=== PATIENT | male | born 1960 | race Caucasian/White ===

== ENCOUNTER 2017-12-11 10:57 | Inpatient (IN) | payer OTHER, MEDICAID ==
[~2017-12-11] VITALS: Ht 170.2 cm; Wt 84.4 kg
[~2017-12-11 10:57] MED LIST: BUDE10.23 IH; HYDR-3965 PO; MULT1CAP34 PO; OMEP-84 PO; PRED10TA PO; ZES10T PO
[2017-12-11] MEDS ORDERED: ondansetron/PF 4mg/2ml inj IV ONE (11:10)
[2017-12-11 11:28] LABS: BASOPHILS % (AUTO) 0.1 % (0-1); EOSINOPHILS # (AUTO) 0.2 X10'3 (0-0.9); HEMATOCRIT 41.9 % (42.0-52.0); HEMOGLOBIN 14.1 g/dl (14.0-17.9); LYMPHOCYTES # (AUTO) 1.3 X10'3 (1.1-4.8); LYMPHOCYTES % (AUTO) 8.2 % (21-51); MEAN CORPUSCULAR HEMOGLOBIN 30.7 PG (27.0-31.0); MEAN CORPUSCULAR HGB CONC 33.7 % (33.0-36.5); MEAN CORPUSCULAR VOLUME 91.2 FL (78-98); MONOCYTES # (AUTO) 1.4 X10'3 (0-0.9); NEUTROPHILS # (AUTO) 12.9 X10'3 (1.8-7.7); NEUTROPHILS % (AUTO) 81.7 % (42-75); PLATELET COUNT 308 X10'3 (140-440); RED BLOOD COUNT 4.59 X10'6 (4.70-6.10); RED CELL DISTRIBUTION WIDTH 14.5 % (11.5-14.5); WHITE BLOOD COUNT 15.8 X10'3 (4.5-11.0)
[2017-12-11 11:35] LABS: CLARITY,URINE CLEAR (Clear); COLOR,URINE YELLOW (Yellow); GLUCOSE, URINE NEGATIVE (Neg); KETONES,URINE NEGATIVE (Neg); LEUKOCYTE ESTERASE ,URINE LARGE (Neg); NITRITES, URINE NEGATIVE (Neg); OCCULT BLOOD,URINE TRACE-INTACT (Neg); PROTEIN,URINE NEGATIVE (Neg); UROBILINOGEN,URINE 0.2 E.U/dL (0.2-1.0)
[2017-12-11 11:41] LABS: UA COLLECTION TYPE CLN CATCH MIDSTREAM
[2017-12-11 11:41] LABS: ALANINE AMINOTRANSFERASE 25 U/L (12-78); ALBUMIN 3.3 G/DL (3.4-5.0); ALBUMIN/GLOBULIN RATIO 0.7 (1.1-1.5); ALKALINE PHOSPHATASE 83 IU/L (46-116); ANION GAP 7 (8-16); ASPARTATE AMINO TRANSFERASE 18 U/L (10-37); BILIRUBIN,TOTAL 0.6 MG/DL (0.1-1.0); BLOOD UREA NITROGEN 12 MG/DL (7-18); BUN/CREATININE RATIO 9.8 (5.4-32.0); CALCIUM 9.1 MG/DL (8.5-10.1); CHLORIDE 100 MMOL/L (99-107); CREATININE 1.22 MG/DL (0.60-1.10); GLUCOSE 103 MG/DL (70-104); POTASSIUM 4.4 MMOL/L (3.5-5.1); SODIUM 135 MMOL/L (135-145); TOTAL CARBON DIOXIDE 28.2 MMOL/L (24-32); TOTAL PROTEIN 8.1 G/DL (6.4-8.2); eGFR 61 ML/MIN
[2017-12-11 11:42] LABS: BACTERIA,URINE NONE SEEN /HPF (Neg); MUCUS STRANDS NONE SEEN /LPF (Neg); RBC,URINE 0-2 /HPF (0-2); SQUAMOUS EPITHELIAL CELL,UR FEW /LPF (FEW); WBC,URINE 20-30 /HPF (0-4)
[2017-12-11] MEDS ORDERED: CefTRIAXone 2gm/D5W 50ml 50 ML IV ONE (11:50)
[2017-12-11] MEDS: morphine 4 MG/ML inj SYRINge IV PRN ×2 (12:32→13:42)
[2017-12-11] MEDS ORDERED: magnesium 1gm/100ml D5W IVPB 50 ML IV PRN (12:50)
[2017-12-11] MEDS ORDERED: mag hydrox/Alum hydrox/simeth 30ml oral suspension PO PRN (12:50)
[2017-12-11] MEDS ORDERED: potassium Cl 20 mEq SR tablet PO PRN ×2 (12:50)
[2017-12-11] MEDS ORDERED: ondansetron/PF 4mg/2ml inj IV PRN (12:50)
[2017-12-11] MEDS ORDERED: potassium Cl 40MEQ/NS 500ml 500 ML IV PRN ×2 (12:50)
[2017-12-11] MEDS ORDERED: magnesium 4gm in 100ml NS 100 ML IV PRN (12:50)
[2017-12-11] MEDS ORDERED: HYDROmorphone inj. 0.5 MG/0.5 ML DISP.SYRIN IV PRN (12:50)
[2017-12-11] MEDS ORDERED: magnesium Cl slow-release 64mg tablet PO PRN (12:50)
[2017-12-11] MEDS: normal saline 1000ml 1,000 ML IV SCH (15:59)
[2017-12-11 16:30] VITALS: BP 158/88
[2017-12-11 18:00] VITALS: BP 163/103
[2017-12-11] MEDS: heparin, porcine 5000 units/ml vial SQ SCH (19:20)
[2017-12-11] MEDS: CefTRIAXone/D5W-Rocephin 1gm 50 ML IV SCH (19:20)
[2017-12-11] MEDS ORDERED: HYDROmorphone 1 mg/ml syringe ONE (21:32)
[2017-12-11] MEDS: magnesium hydroxide 30ml (MOM) UD suspension PO PRN (21:37)
[2017-12-12] VITALS: BP 140/93
[2017-12-12] MEDS: normal saline 1000ml 1,000 ML IV SCH ×3 (03:29→15:03)
[2017-12-12 05:33] LABS: BASOPHILS # (AUTO) 0.1 X10'3 (0-0.2); BASOPHILS % (AUTO) 1.1 % (0-1); EOSINOPHILS # (AUTO) 0.3 X10'3 (0-0.9); EOSINOPHILS % (AUTO) 2.2 % (0-6); HEMATOCRIT 38.9 % (42.0-52.0); HEMOGLOBIN 13.1 g/dl (14.0-17.9); LYMPHOCYTES # (AUTO) 1.4 X10'3 (1.1-4.8); LYMPHOCYTES % (AUTO) 11.4 % (21-51); MEAN CORPUSCULAR HEMOGLOBIN 30.9 PG (27.0-31.0); MEAN CORPUSCULAR HGB CONC 33.7 % (33.0-36.5); MEAN CORPUSCULAR VOLUME 91.6 FL (78-98); MEAN PLATELET VOLUME 8.3 FL (7.4-10.4); MONOCYTES # (AUTO) 1.4 X10'3 (0-0.9); MONOCYTES % (AUTO) 11.4 % (2-12); NEUTROPHILS # (AUTO) 9.1 X10'3 (1.8-7.7); NEUTROPHILS % (AUTO) 73.9 % (42-75); PLATELET COUNT 269 X10'3 (140-440); RED BLOOD COUNT 4.25 X10'6 (4.70-6.10); RED CELL DISTRIBUTION WIDTH 14.6 % (11.5-14.5); WHITE BLOOD COUNT 12.3 X10'3 (4.5-11.0)
[2017-12-12 06:03] LABS: ALANINE AMINOTRANSFERASE 56 U/L (12-78); ALBUMIN 2.8 G/DL (3.4-5.0); ALBUMIN/GLOBULIN RATIO 0.7 (1.1-1.5); ALKALINE PHOSPHATASE 114 IU/L (46-116); ANION GAP 5 (8-16); ASPARTATE AMINO TRANSFERASE 37 U/L (10-37); BILIRUBIN,TOTAL 0.4 MG/DL (0.1-1.0); BLOOD UREA NITROGEN 10 MG/DL (7-18); BUN/CREATININE RATIO 7.8 (5.4-32.0); CALCIUM 8.8 MG/DL (8.5-10.1); CHLORIDE 105 MMOL/L (99-107); CREATININE 1.28 MG/DL (0.60-1.10); GLUCOSE 98 MG/DL (70-104); MAGNESIUM 2.1 MG/DL (1.5-2.4); POTASSIUM 4.3 MMOL/L (3.5-5.1); SODIUM 139 MMOL/L (135-145); TOTAL CARBON DIOXIDE 28.9 MMOL/L (24-32); eGFR 58 ML/MIN
[2017-12-12 06:57] VITALS: BP 139/98
[2017-12-12] MEDS: heparin, porcine 5000 units/ml vial SQ SCH ×2 (07:34→19:48)
[2017-12-12] MEDS: vancomycin/NS 1 GM ADD-VANTAGE 250 ML IV SCH ×2 (07:34→19:47)
[2017-12-12] MEDS ORDERED: LOSA50TA3 PO (07:53)
[2017-12-12] MEDS: K and/or MAG REPLACEMENT MC SCH (08:00)
[2017-12-12] MEDS ORDERED: pneumococcal 23-VAL P-sac vacc 25 mcg/0.5ml vial IMVAC ONE (10:00)
[2017-12-12] MEDS: lactobacillus rhamnosus 10,000 MMU CELLS/CAPSULE PO SCH ×2 (10:14→19:48)
[2017-12-12 11:27] VITALS: BP 170/98
[2017-12-12] MEDS: losartan 50mg tablet PO SCH (11:49)
[2017-12-12] MEDS: HYDROcodone/acetaminophen 5mg/325mg tablet PO PRN (11:50)
[2017-12-12] MEDS: albuterol 2.5 MG/3 ML nebule NEB SCH ×2 (15:00→18:55)
[2017-12-12] MEDS: HYDROmorphone 1 mg/ml syringe IV PRN (16:23)
[2017-12-12] MEDS: CefTRIAXone/D5W-Rocephin 1gm 50 ML IV SCH (17:53)
[2017-12-12 18:00] VITALS: BP 172/97
[2017-12-12] MEDS ORDERED: amLODIPine 2.5mg tablet PO ONE (19:40)
[2017-12-12] MEDS ORDERED: FORMOTEROL FUMARATE IH SCH (20:00)
[2017-12-12] MEDS ORDERED: [UNRECOGNIZED DRUG - OTHER] IH SCH (20:00)
[2017-12-12] MEDS ORDERED: BUDESONIDE IH SCH (20:00)
[2017-12-12] MEDS: budesonide 0.5mg/2ml UD nebule IH SCH (21:00)
[2017-12-13 00:11] VITALS: BP 163/104
[2017-12-13] MEDS: normal saline 1000ml 1,000 ML IV SCH (02:40)
[2017-12-13 05:11] LABS: BASOPHILS % (AUTO) 0.3 % (0-1); EOSINOPHILS # (AUTO) 0.3 X10'3 (0-0.9); EOSINOPHILS % (AUTO) 2.4 % (0-6); HEMATOCRIT 36.9 % (42.0-52.0); HEMOGLOBIN 12.4 g/dl (14.0-17.9); LYMPHOCYTES # (AUTO) 1.3 X10'3 (1.1-4.8); LYMPHOCYTES % (AUTO) 9.7 % (21-51); MEAN CORPUSCULAR HEMOGLOBIN 30.9 PG (27.0-31.0); MEAN CORPUSCULAR HGB CONC 33.5 % (33.0-36.5); MEAN CORPUSCULAR VOLUME 92.2 FL (78-98); MEAN PLATELET VOLUME 8.1 FL (7.4-10.4); MONOCYTES # (AUTO) 1.4 X10'3 (0-0.9); MONOCYTES % (AUTO) 10.1 % (2-12); NEUTROPHILS # (AUTO) 10.5 X10'3 (1.8-7.7); NEUTROPHILS % (AUTO) 77.5 % (42-75); PLATELET COUNT 276 X10'3 (140-440); RED CELL DISTRIBUTION WIDTH 14.6 % (11.5-14.5); WHITE BLOOD COUNT 13.6 X10'3 (4.5-11.0)
[2017-12-13 05:25] LABS: ALANINE AMINOTRANSFERASE 37 U/L (12-78); ALBUMIN 2.6 G/DL (3.4-5.0); ALBUMIN/GLOBULIN RATIO 0.6 (1.1-1.5); ALKALINE PHOSPHATASE 92 IU/L (46-116); ANION GAP 2 (8-16); ASPARTATE AMINO TRANSFERASE 18 U/L (10-37); BILIRUBIN,TOTAL 0.4 MG/DL (0.1-1.0); BLOOD UREA NITROGEN 10 MG/DL (7-18); BUN/CREATININE RATIO 7.8 (5.4-32.0); CALCIUM 8.4 MG/DL (8.5-10.1); CHLORIDE 103 MMOL/L (99-107); CREATININE 1.29 MG/DL (0.60-1.10); GLUCOSE 99 MG/DL (70-104); MAGNESIUM 1.8 MG/DL (1.5-2.4); POTASSIUM 4.2 MMOL/L (3.5-5.1); SODIUM 134 MMOL/L (135-145); TOTAL PROTEIN 6.7 G/DL (6.4-8.2); eGFR 57 ML/MIN
[2017-12-13] MEDS: albuterol 2.5 MG/3 ML nebule NEB SCH ×4 (07:00→19:00)
[2017-12-13 07:45] VITALS: BP 165/86
[2017-12-13] MEDS: K and/or MAG REPLACEMENT MC SCH (08:00)
[2017-12-13] MEDS: HYDROmorphone 1 mg/ml syringe IV PRN ×3 (08:00→19:42)
[2017-12-13] MEDS: vancomycin/NS 1 GM ADD-VANTAGE 250 ML IV SCH ×2 (08:01→19:29)
[2017-12-13] MEDS: losartan 50mg tablet PO SCH (08:01)
[2017-12-13] MEDS: acetaminophen 325mg tablet PO PRN (08:01)
[2017-12-13] MEDS: lactobacillus rhamnosus 10,000 MMU CELLS/CAPSULE PO SCH ×2 (08:01→19:29)
[2017-12-13] MEDS: heparin, porcine 5000 units/ml vial SQ SCH ×2 (08:01→19:29)
[2017-12-13] MEDS: pantoprazole 40mg Tablet.DR PO SCH (08:01)
[2017-12-13] MEDS: budesonide 0.5mg/2ml UD nebule IH SCH ×2 (08:54→19:25)
[2017-12-13] MEDS ORDERED: amLODIPine 5mg tablet PO ONE (11:40)
[2017-12-13 11:55] VITALS: BP 168/91
[2017-12-13] MEDS: magnesium hydroxide 30ml (MOM) UD suspension PO PRN (12:56)
[2017-12-13] MEDS ORDERED: bisacodyl 10mg suppository rectal RC STA (16:42)
[2017-12-13] MEDS ORDERED: bisacodyl 10mg suppository rectal RC PRN (16:45)
[2017-12-13] MEDS: CefTRIAXone/D5W-Rocephin 1gm 50 ML IV SCH (17:24)
[2017-12-13 19:00] VITALS: BP 150/81
[2017-12-13] MEDS ORDERED: VANCOMYCIN LEVEL IV ONE (19:30)
[2017-12-13] MEDS: docusate sod 250mg capsule PO SCH (20:52)
[2017-12-14] VITALS: BP 155/93
[2017-12-14 06:26] LABS: BASOPHILS % (AUTO) 0.2 % (0-1); EOSINOPHILS # (AUTO) 0.3 X10'3 (0-0.9); EOSINOPHILS % (AUTO) 2.7 % (0-6); HEMATOCRIT 39.9 % (42.0-52.0); HEMOGLOBIN 13.4 g/dl (14.0-17.9); LYMPHOCYTES # (AUTO) 1.1 X10'3 (1.1-4.8); LYMPHOCYTES % (AUTO) 8.7 % (21-51); MEAN CORPUSCULAR HEMOGLOBIN 30.5 PG (27.0-31.0); MEAN CORPUSCULAR HGB CONC 33.5 % (33.0-36.5); MEAN PLATELET VOLUME 7.7 FL (7.4-10.4); MONOCYTES # (AUTO) 1.3 X10'3 (0-0.9); MONOCYTES % (AUTO) 10.8 % (2-12); NEUTROPHILS # (AUTO) 9.5 X10'3 (1.8-7.7); NEUTROPHILS % (AUTO) 77.6 % (42-75); PLATELET COUNT 293 X10'3 (140-440); RED BLOOD COUNT 4.38 X10'6 (4.70-6.10); RED CELL DISTRIBUTION WIDTH 14.2 % (11.5-14.5); WHITE BLOOD COUNT 12.3 X10'3 (4.5-11.0)
[2017-12-14 07:00] LABS: ALANINE AMINOTRANSFERASE 31 U/L (12-78); ALBUMIN 2.8 G/DL (3.4-5.0); ALBUMIN/GLOBULIN RATIO 0.6 (1.1-1.5); ALKALINE PHOSPHATASE 83 IU/L (46-116); ANION GAP 6 (8-16); ASPARTATE AMINO TRANSFERASE 20 U/L (10-37); BILIRUBIN,TOTAL 0.4 MG/DL (0.1-1.0); BLOOD UREA NITROGEN 8 MG/DL (7-18); BUN/CREATININE RATIO 6.3 (5.4-32.0); CHLORIDE 103 MMOL/L (99-107); CREATININE 1.28 MG/DL (0.60-1.10); GLUCOSE 93 MG/DL (70-104); MAGNESIUM 2.2 MG/DL (1.5-2.4); POTASSIUM 4.6 MMOL/L (3.5-5.1); SODIUM 140 MMOL/L (135-145); TOTAL CARBON DIOXIDE 31.4 MMOL/L (24-32); TOTAL PROTEIN 7.3 G/DL (6.4-8.2); eGFR 58 ML/MIN
[2017-12-14] MEDS: albuterol 2.5 MG/3 ML nebule NEB SCH ×2 (07:00→11:00)
[2017-12-14] MEDS: budesonide 0.5mg/2ml UD nebule IH SCH (07:07)
[2017-12-14] MEDS: losartan 50mg tablet PO SCH (07:22)
[2017-12-14] MEDS: magnesium hydroxide 30ml (MOM) UD suspension PO PRN (07:22)
[2017-12-14] MEDS: heparin, porcine 5000 units/ml vial SQ SCH ×2 (07:23→19:11)
[2017-12-14] MEDS: lactobacillus rhamnosus 10,000 MMU CELLS/CAPSULE PO SCH ×2 (07:23→20:12)
[2017-12-14] MEDS: vancomycin/NS 1 GM ADD-VANTAGE 250 ML IV SCH ×2 (07:23→19:11)
[2017-12-14] MEDS: pantoprazole 40mg Tablet.DR PO SCH (07:23)
[2017-12-14] MEDS: amLODIPine 5mg tablet PO SCH (07:23)
[2017-12-14] MEDS ORDERED: amLODIPine 5mg tablet PO SCH (08:00)
[2017-12-14] MEDS: K and/or MAG REPLACEMENT MC SCH (08:00)
[2017-12-14 08:53] VITALS: BP 151/84
[2017-12-14 12:00] VITALS: BP 124/80
[2017-12-14] MEDS: HYDROmorphone 1 mg/ml syringe IV PRN ×2 (12:27→17:08)
[2017-12-14] MEDS ORDERED: ALBU8HFA PO (12:39)
[2017-12-14] MEDS: CefTRIAXone/D5W-Rocephin 1gm 50 ML IV SCH (17:04)
[2017-12-14 19:00] VITALS: BP 163/91
[2017-12-14] MEDS: docusate sod 250mg capsule PO SCH (20:12)
[2017-12-15] VITALS: BP 144/86
[2017-12-15 05:24] LABS: BASOPHILS # (AUTO) 0.1 X10'3 (0-0.2); BASOPHILS % (AUTO) 0.7 % (0-1); EOSINOPHILS # (AUTO) 0.4 X10'3 (0-0.9); EOSINOPHILS % (AUTO) 3.4 % (0-6); HEMATOCRIT 37.4 % (42.0-52.0); HEMOGLOBIN 12.4 g/dl (14.0-17.9); LYMPHOCYTES # (AUTO) 1.2 X10'3 (1.1-4.8); LYMPHOCYTES % (AUTO) 10.2 % (21-51); MEAN CORPUSCULAR HEMOGLOBIN 30.7 PG (27.0-31.0); MEAN CORPUSCULAR HGB CONC 33.3 % (33.0-36.5); MEAN CORPUSCULAR VOLUME 92.2 FL (78-98); MEAN PLATELET VOLUME 7.7 FL (7.4-10.4); MONOCYTES # (AUTO) 1.4 X10'3 (0-0.9); MONOCYTES % (AUTO) 12.4 % (2-12); NEUTROPHILS # (AUTO) 8.5 X10'3 (1.8-7.7); NEUTROPHILS % (AUTO) 73.3 % (42-75); PLATELET COUNT 265 X10'3 (140-440); RED BLOOD COUNT 4.05 X10'6 (4.70-6.10); RED CELL DISTRIBUTION WIDTH 14.6 % (11.5-14.5); WHITE BLOOD COUNT 11.7 X10'3 (4.5-11.0)
[2017-12-15 05:41] LABS: ALANINE AMINOTRANSFERASE 27 U/L (12-78); ALBUMIN 2.5 G/DL (3.4-5.0); ALBUMIN/GLOBULIN RATIO 0.6 (1.1-1.5); ALKALINE PHOSPHATASE 69 IU/L (46-116); ANION GAP 3 (8-16); ASPARTATE AMINO TRANSFERASE 14 U/L (10-37); BILIRUBIN,TOTAL 0.2 MG/DL (0.1-1.0); BLOOD UREA NITROGEN 8 MG/DL (7-18); BUN/CREATININE RATIO 6.1 (5.4-32.0); CALCIUM 9.3 MG/DL (8.5-10.1); CHLORIDE 104 MMOL/L (99-107); CREATININE 1.32 MG/DL (0.60-1.10); GLUCOSE 102 MG/DL (70-104); MAGNESIUM 2.2 MG/DL (1.5-2.4); POTASSIUM 4.6 MMOL/L (3.5-5.1); SODIUM 140 MMOL/L (135-145); TOTAL CARBON DIOXIDE 33.5 MMOL/L (24-32); TOTAL PROTEIN 6.6 G/DL (6.4-8.2); eGFR 56 ML/MIN
[2017-12-15 07:18] VITALS: BP 167/92
[2017-12-15] MEDS: amLODIPine 5mg tablet PO SCH (08:09)
[2017-12-15] MEDS: lactobacillus rhamnosus 10,000 MMU CELLS/CAPSULE PO SCH ×2 (08:09→19:02)
[2017-12-15] MEDS: losartan 50mg tablet PO SCH (08:09)
[2017-12-15] MEDS: heparin, porcine 5000 units/ml vial SQ SCH ×2 (08:10→19:03)
[2017-12-15] MEDS: vancomycin/NS 1 GM ADD-VANTAGE 250 ML IV SCH ×2 (08:10→19:02)
[2017-12-15] MEDS: pantoprazole 40mg Tablet.DR PO SCH (08:10)
[2017-12-15] MEDS: K and/or MAG REPLACEMENT MC SCH (08:12)
[2017-12-15] MEDS: HYDROcodone/acetaminophen 5mg/325mg tablet PO PRN (08:21)
[2017-12-15] MEDS: magnesium hydroxide 30ml (MOM) UD suspension PO PRN ×2 (08:21→16:13)
[2017-12-15] MEDS: HYDROmorphone 1 mg/ml syringe IV PRN ×3 (08:28→20:20)
[2017-12-15] MEDS ORDERED: amLODIPine 5mg tablet PO ONE (10:05)
[2017-12-15 10:46] VITALS: BP 162/82
[2017-12-15] MEDS: CefTRIAXone/D5W-Rocephin 1gm 50 ML IV SCH (17:29)
[2017-12-15 19:00] VITALS: BP 149/82
[2017-12-15] MEDS: docusate sod 250mg capsule PO SCH (20:20)
[2017-12-15 23:59] VITALS: BP 153/88
[2017-12-16] VITALS: BP 156/100
[2017-12-16 05:13] LABS: BASOPHILS % (AUTO) 0.3 % (0-1); EOSINOPHILS # (AUTO) 0.4 X10'3 (0-0.9); EOSINOPHILS % (AUTO) 3.1 % (0-6); HEMATOCRIT 36.2 % (42.0-52.0); HEMOGLOBIN 12.2 g/dl (14.0-17.9); LYMPHOCYTES # (AUTO) 1.1 X10'3 (1.1-4.8); MEAN CORPUSCULAR HEMOGLOBIN 30.7 PG (27.0-31.0); MEAN CORPUSCULAR HGB CONC 33.6 % (33.0-36.5); MEAN CORPUSCULAR VOLUME 91.4 FL (78-98); MONOCYTES # (AUTO) 1.2 X10'3 (0-0.9); MONOCYTES % (AUTO) 9.5 % (2-12); NEUTROPHILS # (AUTO) 9.8 X10'3 (1.8-7.7); NEUTROPHILS % (AUTO) 78.1 % (42-75); PLATELET COUNT 274 X10'3 (140-440); RED BLOOD COUNT 3.96 X10'6 (4.70-6.10); RED CELL DISTRIBUTION WIDTH 14.3 % (11.5-14.5); WHITE BLOOD COUNT 12.5 X10'3 (4.5-11.0)
[2017-12-16 05:36] LABS: ALANINE AMINOTRANSFERASE 28 U/L (12-78); ALBUMIN 2.6 G/DL (3.4-5.0); ALBUMIN/GLOBULIN RATIO 0.6 (1.1-1.5); ALKALINE PHOSPHATASE 71 IU/L (46-116); ANION GAP 4 (8-16); ASPARTATE AMINO TRANSFERASE 13 U/L (10-37); BILIRUBIN,TOTAL 0.2 MG/DL (0.1-1.0); BLOOD UREA NITROGEN 10 MG/DL (7-18); BUN/CREATININE RATIO 7.5 (5.4-32.0); CALCIUM 8.8 MG/DL (8.5-10.1); CHLORIDE 102 MMOL/L (99-107); CREATININE 1.33 MG/DL (0.60-1.10); GLUCOSE 102 MG/DL (70-104); MAGNESIUM 2.3 MG/DL (1.5-2.4); POTASSIUM 4.3 MMOL/L (3.5-5.1); SODIUM 140 MMOL/L (135-145); TOTAL CARBON DIOXIDE 34.4 MMOL/L (24-32); TOTAL PROTEIN 6.8 G/DL (6.4-8.2); eGFR 55 ML/MIN
[2017-12-16 06:53] VITALS: BP 156/96
[2017-12-16] MEDS: K and/or MAG REPLACEMENT MC SCH (08:00)
[2017-12-16] MEDS: pantoprazole 40mg Tablet.DR PO SCH (08:12)
[2017-12-16] MEDS: vancomycin/NS 1 GM ADD-VANTAGE 250 ML IV SCH ×2 (08:12→21:11)
[2017-12-16] MEDS: amLODIPine 5mg tablet PO SCH (08:12)
[2017-12-16] MEDS: losartan 50mg tablet PO SCH (08:12)
[2017-12-16] MEDS: lactobacillus rhamnosus 10,000 MMU CELLS/CAPSULE PO SCH ×2 (08:12→19:59)
[2017-12-16] MEDS: heparin, porcine 5000 units/ml vial SQ SCH ×2 (08:13→20:00)
[2017-12-16] MEDS: magnesium hydroxide 30ml (MOM) UD suspension PO PRN (08:25)
[2017-12-16] MEDS: [UNRECOGNIZED DRUG - OTHER] PO (08:41)
[2017-12-16] MEDS: ALBUTEROL PO (08:41)
[2017-12-16] MEDS: HYDROmorphone 1 mg/ml syringe IV PRN ×3 (09:49→20:05)
[2017-12-16 12:04] VITALS: BP 133/95
[2017-12-16] MEDS: piperacillin/tazo 3.375gm/50ml 50 ML IV SCH ×2 (14:21→19:52)
[2017-12-16 18:00] VITALS: BP 159/81
[2017-12-16] MEDS: docusate sod 250mg capsule PO SCH (21:12)
[2017-12-16 23:23] VITALS: BP 156/100
[2017-12-17] MEDS: piperacillin/tazo 3.375gm/50ml 50 ML IV SCH ×4 (01:16→19:30)
[2017-12-17] MEDS: ALBUTEROL PO (05:16)
[2017-12-17] MEDS: [UNRECOGNIZED DRUG - OTHER] PO (05:16)
[2017-12-17 05:50] LABS: BASOPHILS # (AUTO) 0.1 X10'3 (0-0.2); BASOPHILS % (AUTO) 0.5 % (0-1); EOSINOPHILS # (AUTO) 0.5 X10'3 (0-0.9); EOSINOPHILS % (AUTO) 4.4 % (0-6); HEMATOCRIT 39.7 % (42.0-52.0); HEMOGLOBIN 13.2 g/dl (14.0-17.9); LYMPHOCYTES # (AUTO) 1.2 X10'3 (1.1-4.8); LYMPHOCYTES % (AUTO) 11.2 % (21-51); MEAN CORPUSCULAR HEMOGLOBIN 30.4 PG (27.0-31.0); MEAN CORPUSCULAR HGB CONC 33.2 % (33.0-36.5); MEAN CORPUSCULAR VOLUME 91.7 FL (78-98); MEAN PLATELET VOLUME 8.1 FL (7.4-10.4); MONOCYTES % (AUTO) 9.2 % (2-12); NEUTROPHILS # (AUTO) 8.2 X10'3 (1.8-7.7); NEUTROPHILS % (AUTO) 74.7 % (42-75); PLATELET COUNT 304 X10'3 (140-440); RED BLOOD COUNT 4.33 X10'6 (4.70-6.10); RED CELL DISTRIBUTION WIDTH 14.3 % (11.5-14.5)
[2017-12-17 06:17] LABS: ALANINE AMINOTRANSFERASE 40 U/L (12-78); ALBUMIN 2.9 G/DL (3.4-5.0); ALBUMIN/GLOBULIN RATIO 0.7 (1.1-1.5); ALKALINE PHOSPHATASE 79 IU/L (46-116); ANION GAP 7 (8-16); ASPARTATE AMINO TRANSFERASE 22 U/L (10-37); BILIRUBIN,TOTAL 0.4 MG/DL (0.1-1.0); BLOOD UREA NITROGEN 8 MG/DL (7-18); BUN/CREATININE RATIO 5.7 (5.4-32.0); CALCIUM 8.8 MG/DL (8.5-10.1); CHLORIDE 102 MMOL/L (99-107); CREATININE 1.41 MG/DL (0.60-1.10); GLUCOSE 99 MG/DL (70-104); MAGNESIUM 2.5 MG/DL (1.5-2.4); PHOSPHORUS 4.3 MG/DL (2.3-4.5); POTASSIUM 4.5 MMOL/L (3.5-5.1); SODIUM 141 MMOL/L (135-145); TOTAL CARBON DIOXIDE 31.7 MMOL/L (24-32); TOTAL PROTEIN 7.2 G/DL (6.4-8.2); eGFR 52 ML/MIN
[2017-12-17 07:29] VITALS: BP 163/96
[2017-12-17] MEDS: amLODIPine 5mg tablet PO SCH (07:36)
[2017-12-17] MEDS: losartan 50mg tablet PO SCH (07:36)
[2017-12-17] MEDS: lactobacillus rhamnosus 10,000 MMU CELLS/CAPSULE PO SCH ×2 (07:36→20:08)
[2017-12-17] MEDS: pantoprazole 40mg Tablet.DR PO SCH (07:36)
[2017-12-17] MEDS: HYDROmorphone 1 mg/ml syringe IV PRN ×3 (07:37→20:03)
[2017-12-17] MEDS: heparin, porcine 5000 units/ml vial SQ SCH ×2 (07:43→20:10)
[2017-12-17] MEDS: K and/or MAG REPLACEMENT MC SCH (08:00)
[2017-12-17] MEDS: vancomycin/NS 1 GM ADD-VANTAGE 250 ML IV SCH ×2 (08:24→20:10)
[2017-12-17] MEDS: HYDROcodone/acetaminophen 5mg/325mg tablet PO PRN (08:31)
[2017-12-17 12:04] VITALS: BP 143/86
[2017-12-17 20:00] VITALS: BP 159/92
[2017-12-17] MEDS: docusate sod 250mg capsule PO SCH (20:08)
[2017-12-18] VITALS: BP 134/80
[2017-12-18] MEDS: piperacillin/tazo 3.375gm/50ml 50 ML IV SCH ×4 (02:11→20:11)
[2017-12-18 05:48] LABS: BASOPHILS # (AUTO) 0.1 X10'3 (0-0.2); BASOPHILS % (AUTO) 0.6 % (0-1); EOSINOPHILS # (AUTO) 0.5 X10'3 (0-0.9); EOSINOPHILS % (AUTO) 4.3 % (0-6); HEMATOCRIT 38.2 % (42.0-52.0); HEMOGLOBIN 12.9 g/dl (14.0-17.9); LYMPHOCYTES # (AUTO) 1.3 X10'3 (1.1-4.8); LYMPHOCYTES % (AUTO) 11.5 % (21-51); MEAN CORPUSCULAR HEMOGLOBIN 30.7 PG (27.0-31.0); MEAN CORPUSCULAR HGB CONC 33.8 % (33.0-36.5); MEAN CORPUSCULAR VOLUME 90.8 FL (78-98); MEAN PLATELET VOLUME 7.8 FL (7.4-10.4); MONOCYTES # (AUTO) 0.9 X10'3 (0-0.9); MONOCYTES % (AUTO) 8.1 % (2-12); NEUTROPHILS # (AUTO) 8.3 X10'3 (1.8-7.7); NEUTROPHILS % (AUTO) 75.5 % (42-75); PLATELET COUNT 280 X10'3 (140-440); RED BLOOD COUNT 4.21 X10'6 (4.70-6.10); RED CELL DISTRIBUTION WIDTH 14.8 % (11.5-14.5)
[2017-12-18 06:02] LABS: ALANINE AMINOTRANSFERASE 39 U/L (12-78); ALBUMIN 2.7 G/DL (3.4-5.0); ALBUMIN/GLOBULIN RATIO 0.6 (1.1-1.5); ALKALINE PHOSPHATASE 69 IU/L (46-116); ANION GAP 8 (8-16); ASPARTATE AMINO TRANSFERASE 22 U/L (10-37); BILIRUBIN,TOTAL 0.4 MG/DL (0.1-1.0); BLOOD UREA NITROGEN 12 MG/DL (7-18); BUN/CREATININE RATIO 8.3 (5.4-32.0); CALCIUM 9.1 MG/DL (8.5-10.1); CHLORIDE 103 MMOL/L (99-107); CREATININE 1.44 MG/DL (0.60-1.10); GLUCOSE 98 MG/DL (70-104); MAGNESIUM 2.2 MG/DL (1.5-2.4); PHOSPHORUS 4.1 MG/DL (2.3-4.5); POTASSIUM 4.2 MMOL/L (3.5-5.1); SODIUM 140 MMOL/L (135-145); eGFR 50 ML/MIN
[2017-12-18 07:00] VITALS: BP 173/98
[2017-12-18] MEDS: losartan 50mg tablet PO SCH (07:05)
[2017-12-18] MEDS: amLODIPine 5mg tablet PO SCH (07:05)
[2017-12-18] MEDS: lactobacillus rhamnosus 10,000 MMU CELLS/CAPSULE PO SCH ×2 (07:05→20:10)
[2017-12-18] MEDS: pantoprazole 40mg Tablet.DR PO SCH (07:05)
[2017-12-18] MEDS: HYDROmorphone 1 mg/ml syringe IV PRN ×3 (07:06→22:25)
[2017-12-18] MEDS: heparin, porcine 5000 units/ml vial SQ SCH ×2 (07:06→20:11)
[2017-12-18] MEDS: vancomycin/NS 1 GM ADD-VANTAGE 250 ML IV SCH (07:51)
[2017-12-18] MEDS: K and/or MAG REPLACEMENT MC SCH (08:00)
[2017-12-18 08:48] VITALS: BP 139/70
[2017-12-18 11:12] VITALS: BP 142/86
[2017-12-18] MEDS: ALBUTEROL PO (18:20)
[2017-12-18] MEDS: [UNRECOGNIZED DRUG - OTHER] PO (18:20)
[2017-12-18 19:15] VITALS: BP 155/86
[2017-12-18] MEDS: docusate sod 250mg capsule PO SCH (20:10)
[2017-12-19 00:06] VITALS: BP 117/87
[2017-12-19] MEDS: piperacillin/tazo 3.375gm/50ml 50 ML IV SCH ×4 (02:23→20:29)
[2017-12-19] MEDS: HYDROmorphone 1 mg/ml syringe IV PRN ×2 (02:24→20:41)
[2017-12-19 05:41] LABS: ALANINE AMINOTRANSFERASE 45 U/L (12-78); ALBUMIN 2.8 G/DL (3.4-5.0); ALBUMIN/GLOBULIN RATIO 0.6 (1.1-1.5); ALKALINE PHOSPHATASE 72 IU/L (46-116); ANION GAP 5 (8-16); ASPARTATE AMINO TRANSFERASE 23 U/L (10-37); BILIRUBIN,TOTAL 0.3 MG/DL (0.1-1.0); BLOOD UREA NITROGEN 11 MG/DL (7-18); BUN/CREATININE RATIO 7.7 (5.4-32.0); CHLORIDE 104 MMOL/L (99-107); CREATININE 1.43 MG/DL (0.60-1.10); GLUCOSE 99 MG/DL (70-104); PHOSPHORUS 3.8 MG/DL (2.3-4.5); POTASSIUM 4.1 MMOL/L (3.5-5.1); SODIUM 138 MMOL/L (135-145); TOTAL CARBON DIOXIDE 29.3 MMOL/L (24-32); TOTAL PROTEIN 7.3 G/DL (6.4-8.2); eGFR 51 ML/MIN
[2017-12-19 07:01] LABS: HEMATOCRIT 39.7 % (42.0-52.0); HEMOGLOBIN 13.3 g/dl (14.0-17.9); MEAN CORPUSCULAR HEMOGLOBIN 30.5 PG (27.0-31.0); MEAN CORPUSCULAR HGB CONC 33.4 % (33.0-36.5); MEAN CORPUSCULAR VOLUME 91.4 FL (78-98); PLATELET COUNT 294 X10'3 (140-440); RED BLOOD COUNT 4.34 X10'6 (4.70-6.10); RED CELL DISTRIBUTION WIDTH 14.6 % (11.5-14.5); WHITE BLOOD COUNT 10.2 X10'3 (4.5-11.0)
[2017-12-19 07:02] LABS: BASOPHILS # (AUTO) 0.1 X10'3 (0-0.2); BASOPHILS % (AUTO) 0.6 % (0-1); EOSINOPHILS # (AUTO) 0.5 X10'3 (0-0.9); EOSINOPHILS % (AUTO) 4.8 % (0-6); LYMPHOCYTES # (AUTO) 1.5 X10'3 (1.1-4.8); LYMPHOCYTES % (AUTO) 15.2 % (21-51); MEAN PLATELET VOLUME 7.5 FL (7.4-10.4); MONOCYTES # (AUTO) 1.5 X10'3 (0-0.9); MONOCYTES % (AUTO) 11.4 % (2-12); NEUTROPHILS # (AUTO) 6.9 X10'3 (1.8-7.7)
[2017-12-19 07:13] VITALS: BP 157/99
[2017-12-19] MEDS: K and/or MAG REPLACEMENT MC SCH (08:00)
[2017-12-19] MEDS: lactobacillus rhamnosus 10,000 MMU CELLS/CAPSULE PO SCH ×2 (08:47→20:29)
[2017-12-19] MEDS: amLODIPine 5mg tablet PO SCH (08:47)
[2017-12-19] MEDS: heparin, porcine 5000 units/ml vial SQ SCH ×2 (08:47→20:29)
[2017-12-19] MEDS: losartan 50mg tablet PO SCH (08:47)
[2017-12-19] MEDS: pantoprazole 40mg Tablet.DR PO SCH (08:48)
[2017-12-19 10:24] LABS: CLARITY,URINE SLIGHTLY CLOUDY (Clear); COLOR,URINE YELLOW (Yellow); GLUCOSE, URINE NEGATIVE (Neg); KETONES,URINE NEGATIVE (Neg); LEUKOCYTE ESTERASE ,URINE MODERATE (Neg); NITRITES, URINE NEGATIVE (Neg); OCCULT BLOOD,URINE TRACE-INTACT (Neg); PROTEIN,URINE NEGATIVE (Neg); UROBILINOGEN,URINE 0.2 E.U/dL (0.2-1.0)
[2017-12-19 10:26] LABS: UA COLLECTION TYPE NON-SPECIFIED
[2017-12-19 10:33] LABS: BACTERIA,URINE FEW /HPF (Neg); MUCUS STRANDS NONE SEEN /LPF (Neg); SQUAMOUS EPITHELIAL CELL,UR NONE SEEN /LPF (FEW); WBC,URINE 20-30 /HPF (0-4)
[2017-12-19 11:39] VITALS: BP 144/88
[2017-12-19 19:00] VITALS: BP 176/86
[2017-12-19] MEDS: docusate sod 250mg capsule PO SCH (20:29)
[2017-12-19] MEDS: ALBUTEROL PO (20:42)
[2017-12-19] MEDS: [UNRECOGNIZED DRUG - OTHER] PO (20:42)
[2017-12-19 22:00] VITALS: BP 132/80
[2017-12-20] VITALS: BP 127/79
[2017-12-20] MEDS: piperacillin/tazo 3.375gm/50ml 50 ML IV SCH ×4 (02:29→19:35)
[2017-12-20] MEDS: magnesium hydroxide 30ml (MOM) UD suspension PO PRN ×2 (02:34→09:30)
[2017-12-20 05:28] LABS: BASOPHILS # (AUTO) 0.1 X10'3 (0-0.2); BASOPHILS % (AUTO) 0.6 % (0-1); EOSINOPHILS # (AUTO) 0.5 X10'3 (0-0.9); HEMATOCRIT 38.9 % (42.0-52.0); HEMOGLOBIN 13.1 g/dl (14.0-17.9); LYMPHOCYTES # (AUTO) 1.7 X10'3 (1.1-4.8); LYMPHOCYTES % (AUTO) 14.9 % (21-51); MEAN CORPUSCULAR HEMOGLOBIN 30.7 PG (27.0-31.0); MEAN CORPUSCULAR HGB CONC 33.6 % (33.0-36.5); MEAN CORPUSCULAR VOLUME 91.4 FL (78-98); MEAN PLATELET VOLUME 7.8 FL (7.4-10.4); MONOCYTES # (AUTO) 0.9 X10'3 (0-0.9); MONOCYTES % (AUTO) 8.3 % (2-12); NEUTROPHILS # (AUTO) 8.3 X10'3 (1.8-7.7); NEUTROPHILS % (AUTO) 72.2 % (42-75); PLATELET COUNT 309 X10'3 (140-440); RED BLOOD COUNT 4.26 X10'6 (4.70-6.10); RED CELL DISTRIBUTION WIDTH 14.7 % (11.5-14.5); WHITE BLOOD COUNT 11.5 X10'3 (4.5-11.0)
[2017-12-20 05:42] LABS: ALANINE AMINOTRANSFERASE 57 U/L (12-78); ALBUMIN 2.9 G/DL (3.4-5.0); ALBUMIN/GLOBULIN RATIO 0.6 (1.1-1.5); ALKALINE PHOSPHATASE 76 IU/L (46-116); ANION GAP 6 (8-16); ASPARTATE AMINO TRANSFERASE 30 U/L (10-37); BILIRUBIN,TOTAL 0.3 MG/DL (0.1-1.0); CALCIUM 9.5 MG/DL (8.5-10.1); CHLORIDE 103 MMOL/L (99-107); CREATININE 1.53 MG/DL (0.60-1.10); GLUCOSE 100 MG/DL (70-104); PHOSPHORUS 3.7 MG/DL (2.3-4.5); POTASSIUM 4.2 MMOL/L (3.5-5.1); SODIUM 140 MMOL/L (135-145); TOTAL CARBON DIOXIDE 30.8 MMOL/L (24-32); TOTAL PROTEIN 7.6 G/DL (6.4-8.2); eGFR 47 ML/MIN
[2017-12-20 06:03] LABS: BLOOD UREA NITROGEN 13 MG/DL (7-18); BUN/CREATININE RATIO 8.5 (5.4-32.0)
[2017-12-20 07:26] VITALS: BP 139/93
[2017-12-20] MEDS: pantoprazole 40mg Tablet.DR PO SCH (07:38)
[2017-12-20] MEDS: lactobacillus rhamnosus 10,000 MMU CELLS/CAPSULE PO SCH ×2 (07:38→19:35)
[2017-12-20] MEDS: losartan 50mg tablet PO SCH (07:38)
[2017-12-20] MEDS: heparin, porcine 5000 units/ml vial SQ SCH ×2 (07:38→19:35)
[2017-12-20] MEDS: amLODIPine 5mg tablet PO SCH (07:38)
[2017-12-20] MEDS: K and/or MAG REPLACEMENT MC SCH (08:00)
[2017-12-20] MEDS: HYDROmorphone 1 mg/ml syringe IV PRN ×2 (09:27→17:45)
[2017-12-20 11:26] VITALS: BP 123/97
[2017-12-20 18:50] VITALS: BP 140/86
[2017-12-20] MEDS: docusate sod 250mg capsule PO SCH (19:35)
[2017-12-21 00:05] VITALS: BP 139/83
[2017-12-21] MEDS: piperacillin/tazo 3.375gm/50ml 50 ML IV SCH ×4 (02:02→20:56)
[2017-12-21 05:33] LABS: BASOPHILS # (AUTO) 0.1 X10'3 (0-0.2); BASOPHILS % (AUTO) 0.8 % (0-1); EOSINOPHILS # (AUTO) 0.5 X10'3 (0-0.9); EOSINOPHILS % (AUTO) 4.9 % (0-6); HEMATOCRIT 41.2 % (42.0-52.0); HEMOGLOBIN 13.7 g/dl (14.0-17.9); LYMPHOCYTES # (AUTO) 1.6 X10'3 (1.1-4.8); LYMPHOCYTES % (AUTO) 17.1 % (21-51); MEAN CORPUSCULAR HEMOGLOBIN 30.4 PG (27.0-31.0); MEAN CORPUSCULAR HGB CONC 33.2 % (33.0-36.5); MEAN CORPUSCULAR VOLUME 91.5 FL (78-98); MEAN PLATELET VOLUME 7.7 FL (7.4-10.4); MONOCYTES % (AUTO) 10.6 % (2-12); NEUTROPHILS # (AUTO) 6.4 X10'3 (1.8-7.7); NEUTROPHILS % (AUTO) 66.6 % (42-75); PLATELET COUNT 304 X10'3 (140-440); WHITE BLOOD COUNT 9.5 X10'3 (4.5-11.0)
[2017-12-21 06:40] LABS: ALANINE AMINOTRANSFERASE 68 U/L (12-78); ALBUMIN/GLOBULIN RATIO 0.7 (1.1-1.5); ALKALINE PHOSPHATASE 70 IU/L (46-116); ANION GAP 6 (8-16); ASPARTATE AMINO TRANSFERASE 29 U/L (10-37); BILIRUBIN,TOTAL 0.3 MG/DL (0.1-1.0); BLOOD UREA NITROGEN 14 MG/DL (7-18); BUN/CREATININE RATIO 9.2 (5.4-32.0); CALCIUM 8.8 MG/DL (8.5-10.1); CHLORIDE 104 MMOL/L (99-107); CREATININE 1.53 MG/DL (0.60-1.10); GLUCOSE 99 MG/DL (70-104); POTASSIUM 4.9 MMOL/L (3.5-5.1); SODIUM 141 MMOL/L (135-145); TOTAL CARBON DIOXIDE 31.2 MMOL/L (24-32); TOTAL PROTEIN 7.5 G/DL (6.4-8.2); eGFR 47 ML/MIN
[2017-12-21 07:22] VITALS: BP 139/89
[2017-12-21] MEDS: HYDROmorphone 1 mg/ml syringe IV PRN ×2 (07:44→18:56)
[2017-12-21] MEDS: heparin, porcine 5000 units/ml vial SQ SCH ×2 (07:44→20:56)
[2017-12-21] MEDS: lactobacillus rhamnosus 10,000 MMU CELLS/CAPSULE PO SCH ×2 (07:45→20:56)
[2017-12-21] MEDS: losartan 50mg tablet PO SCH (07:45)
[2017-12-21] MEDS: amLODIPine 5mg tablet PO SCH (07:45)
[2017-12-21] MEDS: docusate sod 250mg capsule PO SCH ×2 (07:45→20:00)
[2017-12-21] MEDS: pantoprazole 40mg Tablet.DR PO SCH (07:45)
[2017-12-21] MEDS: K and/or MAG REPLACEMENT MC SCH (08:00)
[2017-12-21 12:00] VITALS: BP 114/81
[2017-12-21 20:00] VITALS: BP 116/76
[2017-12-22] VITALS: BP 124/74
[2017-12-22] MEDS: piperacillin/tazo 3.375gm/50ml 50 ML IV SCH ×4 (02:15→20:33)
[2017-12-22] MEDS: HYDROmorphone 1 mg/ml syringe IV PRN (02:27)
[2017-12-22] MEDS: HYDROcodone/acetaminophen 5mg/325mg tablet PO PRN ×3 (05:58→17:29)
[2017-12-22 07:43] VITALS: BP 141/87
[2017-12-22] MEDS: K and/or MAG REPLACEMENT MC SCH (08:00)
[2017-12-22] MEDS: pantoprazole 40mg Tablet.DR PO SCH (10:27)
[2017-12-22] MEDS: losartan 50mg tablet PO SCH (10:27)
[2017-12-22] MEDS: heparin, porcine 5000 units/ml vial SQ SCH ×2 (10:27→20:32)
[2017-12-22] MEDS: lactobacillus rhamnosus 10,000 MMU CELLS/CAPSULE PO SCH ×2 (10:27→20:33)
[2017-12-22] MEDS: docusate sod 250mg capsule PO SCH ×2 (10:27→20:33)
[2017-12-22] MEDS: amLODIPine 5mg tablet PO SCH (10:28)
[2017-12-22] MEDS ORDERED: azithromycin 250mg tablet PO ONE (12:25)
[2017-12-22 12:27] VITALS: BP 132/88
[2017-12-22 20:18] VITALS: BP 118/76
[2017-12-23 00:14] VITALS: BP 125/71
[2017-12-23] MEDS: piperacillin/tazo 3.375gm/50ml 50 ML IV SCH ×4 (01:50→19:54)
[2017-12-23] MEDS: HYDROmorphone 1 mg/ml syringe IV PRN ×2 (04:35→19:24)
[2017-12-23 07:00] VITALS: BP 118/85
[2017-12-23] MEDS: docusate sod 250mg capsule PO SCH ×2 (07:22→19:55)
[2017-12-23] MEDS: losartan 50mg tablet PO SCH (07:22)
[2017-12-23] MEDS: lactobacillus rhamnosus 10,000 MMU CELLS/CAPSULE PO SCH ×2 (07:22→19:54)
[2017-12-23] MEDS: amLODIPine 5mg tablet PO SCH (07:23)
[2017-12-23] MEDS: heparin, porcine 5000 units/ml vial SQ SCH ×2 (07:23→19:55)
[2017-12-23] MEDS: pantoprazole 40mg Tablet.DR PO SCH (07:23)
[2017-12-23] MEDS: K and/or MAG REPLACEMENT MC SCH (08:00)
[2017-12-23 11:50] VITALS: BP 130/86
[2017-12-23 19:10] LABS: CLARITY,URINE CLEAR (Clear); COLOR,URINE YELLOW (Yellow); GLUCOSE, URINE NEGATIVE (Neg); KETONES,URINE NEGATIVE (Neg); LEUKOCYTE ESTERASE ,URINE SMALL (Neg); NITRITES, URINE NEGATIVE (Neg); OCCULT BLOOD,URINE NEGATIVE (Neg); PH,URINE 6.5 (4.8-8.0); PROTEIN,URINE NEGATIVE (Neg); UROBILINOGEN,URINE 0.2 E.U/dL (0.2-1.0)
[2017-12-23 19:17] LABS: UA COLLECTION TYPE CLN CATCH MIDSTREAM
[2017-12-23 19:18] LABS: BACTERIA,URINE FEW /HPF (Neg); RBC,URINE NONE SEEN /HPF (0-2); SQUAMOUS EPITHELIAL CELL,UR NONE SEEN /LPF (FEW)
[2017-12-23 20:00] VITALS: BP 130/85
[2017-12-23] MEDS: [UNRECOGNIZED DRUG - OTHER] PO (20:35)
[2017-12-23] MEDS: ALBUTEROL PO (20:35)
[2017-12-23] MEDS: HYDROcodone/acetaminophen 5mg/325mg tablet PO PRN (22:07)
[2017-12-24] VITALS: BP 131/82
[2017-12-24] MEDS: piperacillin/tazo 3.375gm/50ml 50 ML IV SCH ×4 (01:46→21:05)
[2017-12-24] MEDS: HYDROcodone/acetaminophen 5mg/325mg tablet PO PRN ×2 (02:56→21:06)
[2017-12-24 08:00] VITALS: BP 129/82
[2017-12-24] MEDS: K and/or MAG REPLACEMENT MC SCH (08:00)
[2017-12-24] MEDS: heparin, porcine 5000 units/ml vial SQ SCH ×3 (08:00→21:05)
[2017-12-24] MEDS: docusate sod 250mg capsule PO SCH ×2 (08:45→21:05)
[2017-12-24] MEDS: lactobacillus rhamnosus 10,000 MMU CELLS/CAPSULE PO SCH ×2 (08:45→21:05)
[2017-12-24] MEDS: amLODIPine 5mg tablet PO SCH (08:45)
[2017-12-24] MEDS: losartan 50mg tablet PO SCH (08:45)
[2017-12-24] MEDS: pantoprazole 40mg Tablet.DR PO SCH (08:45)
[2017-12-24] MEDS: HYDROmorphone 1 mg/ml syringe IV PRN ×2 (09:02→18:52)
[2017-12-24 12:00] VITALS: BP 133/85
[2017-12-24 14:27] LABS: BASOPHILS # (AUTO) 0.1 X10'3 (0-0.2); BASOPHILS % (AUTO) 0.6 % (0-1); EOSINOPHILS # (AUTO) 0.3 X10'3 (0-0.9); EOSINOPHILS % (AUTO) 3.6 % (0-6); HEMATOCRIT 41.5 % (42.0-52.0); LYMPHOCYTES % (AUTO) 10.7 % (21-51); MEAN CORPUSCULAR HEMOGLOBIN 30.9 PG (27.0-31.0); MEAN CORPUSCULAR HGB CONC 33.7 % (33.0-36.5); MEAN CORPUSCULAR VOLUME 91.7 FL (78-98); MEAN PLATELET VOLUME 7.9 FL (7.4-10.4); MONOCYTES # (AUTO) 0.8 X10'3 (0-0.9); MONOCYTES % (AUTO) 8.1 % (2-12); NEUTROPHILS # (AUTO) 7.4 X10'3 (1.8-7.7); PLATELET COUNT 279 X10'3 (140-440); RED BLOOD COUNT 4.53 X10'6 (4.70-6.10); RED CELL DISTRIBUTION WIDTH 15.1 % (11.5-14.5); WHITE BLOOD COUNT 9.6 X10'3 (4.5-11.0)
[2017-12-24] MEDS: ALBUTEROL PO (18:46)
[2017-12-24] MEDS: [UNRECOGNIZED DRUG - OTHER] PO (18:46)
[2017-12-24 20:00] VITALS: BP 134/89
[2017-12-24] MEDS ORDERED: diphenhydrAMINE 25mg capsule PO PRN (22:55)
[2017-12-25] VITALS: BP 144/77
[2017-12-25] MEDS: piperacillin/tazo 3.375gm/50ml 50 ML IV SCH ×4 (01:27→21:10)
[2017-12-25] MEDS: HYDROcodone/acetaminophen 5mg/325mg tablet PO PRN ×2 (04:42→14:31)
[2017-12-25 07:08] VITALS: BP 155/87
[2017-12-25] MEDS: lactobacillus rhamnosus 10,000 MMU CELLS/CAPSULE PO SCH ×2 (08:00→21:27)
[2017-12-25] MEDS: K and/or MAG REPLACEMENT MC SCH (08:00)
[2017-12-25] MEDS: pantoprazole 40mg Tablet.DR PO SCH (09:27)
[2017-12-25] MEDS: losartan 50mg tablet PO SCH (09:27)
[2017-12-25] MEDS: docusate sod 250mg capsule PO SCH ×2 (09:27→21:26)
[2017-12-25] MEDS: amLODIPine 5mg tablet PO SCH (09:28)
[2017-12-25] MEDS: heparin, porcine 5000 units/ml vial SQ SCH ×2 (09:31→21:13)
[2017-12-25] MEDS: HYDROmorphone 1 mg/ml syringe IV PRN ×2 (09:47→21:26)
[2017-12-25 11:57] VITALS: BP 118/82
[2017-12-25 20:00] VITALS: BP 105/78
[2017-12-25] MEDS: [UNRECOGNIZED DRUG - OTHER] PO (21:25)
[2017-12-25] MEDS: ALBUTEROL PO (21:25)
[2017-12-26] VITALS: BP 116/70
[2017-12-26] MEDS: piperacillin/tazo 3.375gm/50ml 50 ML IV SCH ×4 (02:48→19:15)
[2017-12-26] MEDS: HYDROcodone/acetaminophen 5mg/325mg tablet PO PRN ×3 (02:54→19:14)
[2017-12-26 07:02] VITALS: BP 131/70
[2017-12-26] MEDS: ALBUTEROL PO ×2 (07:21→19:13)
[2017-12-26] MEDS: [UNRECOGNIZED DRUG - OTHER] PO ×2 (07:21→19:13)
[2017-12-26] MEDS: docusate sod 250mg capsule PO SCH ×2 (08:00→19:14)
[2017-12-26] MEDS: K and/or MAG REPLACEMENT MC SCH (08:00)
[2017-12-26] MEDS: pantoprazole 40mg Tablet.DR PO SCH (09:02)
[2017-12-26] MEDS: lactobacillus rhamnosus 10,000 MMU CELLS/CAPSULE PO SCH ×2 (09:03→19:14)
[2017-12-26] MEDS: amLODIPine 5mg tablet PO SCH (09:03)
[2017-12-26] MEDS: losartan 50mg tablet PO SCH (09:03)
[2017-12-26] MEDS: heparin, porcine 5000 units/ml vial SQ SCH ×2 (09:05→19:30)
[2017-12-26] MEDS: HYDROmorphone 1 mg/ml syringe IV PRN (09:24)
[2017-12-26] MEDS: ketorolac tromethamine 0.5% ophthalmic drops EACHEYE PRN (09:27)
[2017-12-26 20:00] VITALS: BP 142/83
[2017-12-27] VITALS: BP 120/74
[2017-12-27] MEDS: piperacillin/tazo 3.375gm/50ml 50 ML IV SCH ×4 (02:41→19:18)
[2017-12-27] MEDS: HYDROcodone/acetaminophen 5mg/325mg tablet PO PRN ×4 (02:45→18:40)
[2017-12-27] MEDS: amLODIPine 5mg tablet PO SCH (06:56)
[2017-12-27] MEDS: pantoprazole 40mg Tablet.DR PO SCH (06:56)
[2017-12-27] MEDS: losartan 50mg tablet PO SCH (06:56)
[2017-12-27] MEDS: docusate sod 250mg capsule PO SCH ×2 (06:56→19:17)
[2017-12-27] MEDS: heparin, porcine 5000 units/ml vial SQ SCH ×2 (06:57→19:18)
[2017-12-27] MEDS: K and/or MAG REPLACEMENT MC SCH (07:03)
[2017-12-27] MEDS: lactobacillus rhamnosus 10,000 MMU CELLS/CAPSULE PO SCH ×2 (07:03→19:17)
[2017-12-27] MEDS: [UNRECOGNIZED DRUG - OTHER] PO ×2 (07:08→18:47)
[2017-12-27] MEDS: ALBUTEROL PO ×2 (07:08→18:47)
[2017-12-27 07:21] VITALS: BP 140/88
[2017-12-27 12:14] VITALS: BP 136/94
[2017-12-27 15:25] LABS: ALBUMIN 3.2 G/DL (3.4-5.0); ANION GAP 5 (8-16); BLOOD UREA NITROGEN 15 MG/DL (7-18); BUN/CREATININE RATIO 8.7 (5.4-32.0); CALCIUM 8.9 MG/DL (8.5-10.1); CHLORIDE 101 MMOL/L (99-107); CREATININE 1.73 MG/DL (0.60-1.10); GLUCOSE 150 MG/DL (70-104); POTASSIUM 3.9 MMOL/L (3.5-5.1); SODIUM 136 MMOL/L (135-145); TOTAL CARBON DIOXIDE 29.8 MMOL/L (24-32); eGFR 41 ML/MIN
[2017-12-27 19:00] VITALS: BP 134/83
[2017-12-28 00:05] VITALS: BP 103/62
[2017-12-28] MEDS: piperacillin/tazo 3.375gm/50ml 50 ML IV SCH ×4 (01:30→19:04)
[2017-12-28] MEDS: ketorolac tromethamine 0.5% ophthalmic drops EACHEYE PRN (02:54)
[2017-12-28] MEDS: HYDROcodone/acetaminophen 5mg/325mg tablet PO PRN ×5 (02:57→23:11)
[2017-12-28] MEDS: ALBUTEROL PO ×4 (03:28→20:00)
[2017-12-28] MEDS: [UNRECOGNIZED DRUG - OTHER] PO ×4 (03:28→20:00)
[2017-12-28 03:52] LABS: ALANINE AMINOTRANSFERASE 40 U/L (12-78); ALBUMIN 3.1 G/DL (3.4-5.0); ALBUMIN/GLOBULIN RATIO 0.8 (1.1-1.5); ALKALINE PHOSPHATASE 56 IU/L (46-116); ANION GAP 6 (8-16); ASPARTATE AMINO TRANSFERASE 19 U/L (10-37); BILIRUBIN,TOTAL 0.2 MG/DL (0.1-1.0); BLOOD UREA NITROGEN 16 MG/DL (7-18); BUN/CREATININE RATIO 9.9 (5.4-32.0); CALCIUM 8.8 MG/DL (8.5-10.1); CHLORIDE 103 MMOL/L (99-107); CREATININE 1.61 MG/DL (0.60-1.10); GLUCOSE 96 MG/DL (70-104); POTASSIUM 4.2 MMOL/L (3.5-5.1); SODIUM 138 MMOL/L (135-145); TOTAL CARBON DIOXIDE 28.7 MMOL/L (24-32); TOTAL PROTEIN 7.1 G/DL (6.4-8.2); eGFR 44 ML/MIN
[2017-12-28] MEDS: K and/or MAG REPLACEMENT MC SCH (06:57)
[2017-12-28 07:08] VITALS: BP 126/87
[2017-12-28] MEDS: docusate sod 250mg capsule PO SCH ×2 (07:49→19:04)
[2017-12-28] MEDS: losartan 50mg tablet PO SCH (07:50)
[2017-12-28] MEDS: lactobacillus rhamnosus 10,000 MMU CELLS/CAPSULE PO SCH ×2 (07:50→19:04)
[2017-12-28] MEDS: amLODIPine 5mg tablet PO SCH (07:50)
[2017-12-28] MEDS: pantoprazole 40mg Tablet.DR PO SCH (07:50)
[2017-12-28] MEDS: heparin, porcine 5000 units/ml vial SQ SCH ×2 (07:52→19:05)
[2017-12-28 11:34] VITALS: BP 133/85
[2017-12-28 19:00] VITALS: BP 138/91
[2017-12-28] MEDS: BUDESONIDE 0.25 MG/2 ML AMPUL.NEB IH SCH (19:46)
[2017-12-29] VITALS (20 sets, daily range): BP systolic 88–184; BP diastolic 49–103
[2017-12-29] MEDS: piperacillin/tazo 3.375gm/50ml 50 ML IV SCH ×5 (01:08→22:07)
[2017-12-29] MEDS: pantoprazole 40mg Tablet.DR PO SCH (08:00)
[2017-12-29] MEDS: K and/or MAG REPLACEMENT MC SCH (08:00)
[2017-12-29] MEDS: HYDROcodone/acetaminophen 5mg/325mg tablet PO PRN ×2 (08:00→11:54)
[2017-12-29] MEDS: heparin, porcine 5000 units/ml vial SQ SCH ×2 (08:00→22:07)
[2017-12-29] MEDS: lactobacillus rhamnosus 10,000 MMU CELLS/CAPSULE PO SCH ×2 (08:00→20:00)
[2017-12-29] MEDS: amLODIPine 5mg tablet PO SCH (08:01)
[2017-12-29] MEDS: losartan 50mg tablet PO SCH (08:01)
[2017-12-29] MEDS: docusate sod 250mg capsule PO SCH ×2 (08:02→20:00)
[2017-12-29] MEDS: BUDESONIDE 0.25 MG/2 ML AMPUL.NEB IH SCH ×2 (08:05→21:59)
[2017-12-29 10:05] LABS: PARTIAL THROMBOPLASTIN TIME 27 SECONDS (22-32); PROTHROMBIN TIME 10.5 SECONDS (9.0-12.0)
[2017-12-29 10:10] LABS: ALANINE AMINOTRANSFERASE 45 U/L (12-78); ALBUMIN 3.7 G/DL (3.4-5.0); ALBUMIN/GLOBULIN RATIO 0.8 (1.1-1.5); ALKALINE PHOSPHATASE 63 IU/L (46-116); ANION GAP 7 (8-16); ASPARTATE AMINO TRANSFERASE 22 U/L (10-37); BILIRUBIN,TOTAL 0.5 MG/DL (0.1-1.0); BLOOD UREA NITROGEN 13 MG/DL (7-18); BUN/CREATININE RATIO 8.1 (5.4-32.0); CALCIUM 9.7 MG/DL (8.5-10.1); CHLORIDE 103 MMOL/L (99-107); CREATININE 1.61 MG/DL (0.60-1.10); GLUCOSE 113 MG/DL (70-104); POTASSIUM 4.4 MMOL/L (3.5-5.1); SODIUM 138 MMOL/L (135-145); TOTAL CARBON DIOXIDE 28.1 MMOL/L (24-32); TOTAL PROTEIN 8.6 G/DL (6.4-8.2); eGFR 44 ML/MIN
[2017-12-29] MEDS ORDERED: fentaNYL/PF 50MCG/1 ML 2ML syringe ONE (16:13)
[2017-12-29] MEDS ORDERED: midazolam 2 mg/2 ml injection ONE (16:13)
[2017-12-29] MEDS ORDERED: propofol inj 20 ML IV ONE (16:16)
[2017-12-29] MEDS ORDERED: LIDOcaine 2% (20mg/ml) 5ml vial ONE (16:16)
[2017-12-29] MEDS ORDERED: BUPIVAcaine/PF 7.5mg/ml (0.75%) 10ml vial ONE (16:26)
[2017-12-29] MEDS ORDERED: ringers solution, lacted 1,000 ML IV SCH (16:56)
[2017-12-29] MEDS ORDERED: proCHLORperazine 10 MG/2 ml inj IV PRN ×2 (17:00→17:20)
[2017-12-29] MEDS ORDERED: meperidine/PF 25mg/ml syringe IV PRN ×3 (17:00)
[2017-12-29] MEDS ORDERED: morphine 4 MG/ML inj SYRINge IV PRN ×2 (17:00)
[2017-12-29] MEDS ORDERED: ondansetron/PF 4mg/2ml inj IV PRN ×2 (17:00→17:20)
[2017-12-29] MEDS ORDERED: acetaminophen 325mg tablet PO PRN (17:20)
[2017-12-29] MEDS ORDERED: mag hydrox/Alum hydrox/simeth 30ml oral suspension PO PRN (17:20)
[2017-12-29] MEDS ORDERED: opium/belladonna alkaloids No. 15A 30mg rectal suppository RC PRN (17:20)
[2017-12-29] MEDS: acetaminophen 325mg tablet PO PRN (20:00)
[2017-12-29] MEDS: HYDROcodone/acetaminophen 10/325mg tab PO PRN (20:04)
[2017-12-29] MEDS: potassium cl 20mEq in 1/2 NS 1,000 ML IV SCH (20:05)
[2017-12-29 20:59] LABS: BASOPHILS % (AUTO) 0 % (0-1); EOSINOPHILS # (AUTO) 0.1 X10'3 (0-0.9); EOSINOPHILS % (AUTO) 0.7 % (0-6); HEMATOCRIT 43.2 % (42.0-52.0); HEMOGLOBIN 14.4 g/dl (14.0-17.9); LYMPHOCYTES # (AUTO) 0.2 X10'3 (1.1-4.8); LYMPHOCYTES % (AUTO) 2.5 % (21-51); MEAN CORPUSCULAR HEMOGLOBIN 30.6 PG (27.0-31.0); MEAN CORPUSCULAR HGB CONC 33.4 % (33.0-36.5); MEAN CORPUSCULAR VOLUME 91.8 FL (78-98); MEAN PLATELET VOLUME 8.2 FL (7.4-10.4); MONOCYTES % (AUTO) 0.4 % (2-12); NEUTROPHILS # (AUTO) 9.5 X10'3 (1.8-7.7); NEUTROPHILS % (AUTO) 96.4 % (42-75); PLATELET COUNT 183 X10'3 (140-440); RED BLOOD COUNT 4.71 X10'6 (4.70-6.10); RED CELL DISTRIBUTION WIDTH 15.1 % (11.5-14.5); WHITE BLOOD COUNT 9.8 X10'3 (4.5-11.0)
[2017-12-29] MEDS ORDERED: diltiazem 5mg/ml 5ml inj. IV ONE (21:15)
[2017-12-29 21:16] LABS: ALBUMIN 3.4 G/DL (3.4-5.0); ANION GAP 6 (8-16); BLOOD UREA NITROGEN 12 MG/DL (7-18); BUN/CREATININE RATIO 7.7 (5.4-32.0); CALCIUM 8.9 MG/DL (8.5-10.1); CHLORIDE 105 MMOL/L (99-107); CREATININE 1.56 MG/DL (0.60-1.10); GLUCOSE 93 MG/DL (70-104); POTASSIUM 3.9 MMOL/L (3.5-5.1); SODIUM 140 MMOL/L (135-145); TOTAL CARBON DIOXIDE 29.4 MMOL/L (24-32); TROPONIN I < 0.04 NG/ML (0.0-0.05); eGFR 46 ML/MIN
[2017-12-29] MEDS ORDERED: morphine 2 MG/ML inj. syringe IV ONE (23:05)
[2017-12-29] MEDS ORDERED: normal saline 1000ml 1,000 ML IV ONE (23:05)
[2017-12-30 02:00] VITALS: BP 91/64
[2017-12-30] MEDS: piperacillin/tazo 3.375gm/50ml 50 ML IV SCH ×4 (02:49→20:52)
[2017-12-30 05:29] LABS: BASOPHILS % (AUTO) 0 % (0-1); EOSINOPHILS % (AUTO) 0 % (0-6); HEMOGLOBIN 11.8 g/dl (14.0-17.9); LYMPHOCYTES # (AUTO) 0.3 X10'3 (1.1-4.8); MEAN CORPUSCULAR HEMOGLOBIN 30.7 PG (27.0-31.0); MEAN CORPUSCULAR HGB CONC 33.8 % (33.0-36.5); MEAN CORPUSCULAR VOLUME 90.9 FL (78-98); MEAN PLATELET VOLUME 8.5 FL (7.4-10.4); MONOCYTES # (AUTO) 0.9 X10'3 (0-0.9); MONOCYTES % (AUTO) 3.4 % (2-12); NEUTROPHILS # (AUTO) 26.8 X10'3 (1.8-7.7); NEUTROPHILS % (AUTO) 95.6 % (42-75); PLATELET COUNT 183 X10'3 (140-440); RED BLOOD COUNT 3.85 X10'6 (4.70-6.10); RED CELL DISTRIBUTION WIDTH 15.4 % (11.5-14.5)
[2017-12-30 05:30] VITALS: BP 107/67
[2017-12-30 05:48] LABS: ALBUMIN 2.7 G/DL (3.4-5.0); ANION GAP 7 (8-16); BLOOD UREA NITROGEN 16 MG/DL (7-18); BUN/CREATININE RATIO 8.3 (5.4-32.0); CALCIUM 8.2 MG/DL (8.5-10.1); CHLORIDE 105 MMOL/L (99-107); CREATININE 1.92 MG/DL (0.60-1.10); GLUCOSE 102 MG/DL (70-104); POTASSIUM 3.9 MMOL/L (3.5-5.1); SODIUM 139 MMOL/L (135-145); TOTAL CARBON DIOXIDE 27.3 MMOL/L (24-32); eGFR 36 ML/MIN
[2017-12-30 06:20] LABS: PLATELET ESTIMATE NORMAL; TOTAL CELLS COUNTED 100
[2017-12-30] MEDS ORDERED: vancomycin/NS 1 GM ADD-VANTAGE 250 ML IV ONE (06:30)
[2017-12-30] MEDS ORDERED: normal saline 1000ml 1,000 ML IV ONE (06:30)
[2017-12-30] MEDS: BUDESONIDE 0.25 MG/2 ML AMPUL.NEB IH SCH ×2 (07:16→20:00)
[2017-12-30] MEDS: HYDROcodone/acetaminophen 10/325mg tab PO PRN ×3 (07:21→20:52)
[2017-12-30] MEDS: amLODIPine 5mg tablet PO SCH (07:22)
[2017-12-30] MEDS: losartan 50mg tablet PO SCH (07:22)
[2017-12-30] MEDS: lactobacillus rhamnosus 10,000 MMU CELLS/CAPSULE PO SCH ×2 (07:22→20:37)
[2017-12-30] MEDS: oxybutynin 5mg tablet PO PRN (07:22)
[2017-12-30] MEDS: pantoprazole 40mg Tablet.DR PO SCH (07:22)
[2017-12-30] MEDS: docusate sod 250mg capsule PO SCH ×2 (07:22→20:37)
[2017-12-30] MEDS: heparin, porcine 5000 units/ml vial SQ SCH ×2 (07:23→20:37)
[2017-12-30] MEDS: potassium cl 20mEq in 1/2 NS 1,000 ML IV SCH ×3 (07:23→18:45)
[2017-12-30] MEDS ORDERED: pantoprazole 40mg Tablet.DR PO SCH (07:30)
[2017-12-30] MEDS: K and/or MAG REPLACEMENT MC SCH (08:00)
[2017-12-30 12:14] VITALS: BP 100/64
[2017-12-30 18:40] VITALS: BP 122/78
[2017-12-31] MEDS: potassium cl 20mEq in 1/2 NS 1,000 ML IV SCH ×3 (01:16→16:20)
[2017-12-31] MEDS: HYDROcodone/acetaminophen 10/325mg tab PO PRN ×2 (02:14→22:47)
[2017-12-31] MEDS: piperacillin/tazo 3.375gm/50ml 50 ML IV SCH ×4 (02:19→20:11)
[2017-12-31 05:30] LABS: BASOPHILS # (AUTO) 0.1 X10'3 (0-0.2); BASOPHILS % (AUTO) 0.8 % (0-1); EOSINOPHILS # (AUTO) 0.4 X10'3 (0-0.9); EOSINOPHILS % (AUTO) 4.1 % (0-6); HEMATOCRIT 31.5 % (42.0-52.0); HEMOGLOBIN 10.6 g/dl (14.0-17.9); LYMPHOCYTES # (AUTO) 0.6 X10'3 (1.1-4.8); LYMPHOCYTES % (AUTO) 5.8 % (21-51); MEAN CORPUSCULAR HEMOGLOBIN 30.8 PG (27.0-31.0); MEAN CORPUSCULAR HGB CONC 33.6 % (33.0-36.5); MEAN CORPUSCULAR VOLUME 91.5 FL (78-98); MEAN PLATELET VOLUME 9.1 FL (7.4-10.4); MONOCYTES # (AUTO) 0.7 X10'3 (0-0.9); MONOCYTES % (AUTO) 7.5 % (2-12); NEUTROPHILS % (AUTO) 81.8 % (42-75); PLATELET COUNT 134 X10'3 (140-440); RED BLOOD COUNT 3.44 X10'6 (4.70-6.10); RED CELL DISTRIBUTION WIDTH 15.3 % (11.5-14.5); WHITE BLOOD COUNT 9.8 X10'3 (4.5-11.0)
[2017-12-31 05:47] LABS: ALANINE AMINOTRANSFERASE 123 U/L (12-78); ALBUMIN 2.4 G/DL (3.4-5.0); ALBUMIN/GLOBULIN RATIO 0.7 (1.1-1.5); ALKALINE PHOSPHATASE 92 IU/L (46-116); ANION GAP 8 (8-16); ASPARTATE AMINO TRANSFERASE 62 U/L (10-37); BILIRUBIN,TOTAL 0.5 MG/DL (0.1-1.0); BLOOD UREA NITROGEN 13 MG/DL (7-18); BUN/CREATININE RATIO 8.2 (5.4-32.0); CHLORIDE 102 MMOL/L (99-107); CREATININE 1.59 MG/DL (0.60-1.10); GLUCOSE 101 MG/DL (70-104); SODIUM 133 MMOL/L (135-145); TOTAL CARBON DIOXIDE 23.4 MMOL/L (24-32); TOTAL PROTEIN 5.8 G/DL (6.4-8.2); eGFR 45 ML/MIN
[2017-12-31 07:00] VITALS: BP 141/69
[2017-12-31] MEDS ORDERED: vancomycin inj 1,250 MG in normal saline 250ml IV soln 250 ML IV SCH (07:00)
[2017-12-31] MEDS: pantoprazole 40mg Tablet.DR PO SCH (07:42)
[2017-12-31] MEDS: losartan 50mg tablet PO SCH (07:43)
[2017-12-31] MEDS: docusate sod 250mg capsule PO SCH ×2 (07:43→20:10)
[2017-12-31] MEDS: heparin, porcine 5000 units/ml vial SQ SCH ×2 (07:44→20:11)
[2017-12-31] MEDS: lactobacillus rhamnosus 10,000 MMU CELLS/CAPSULE PO SCH ×2 (07:44→20:10)
[2017-12-31] MEDS: amLODIPine 5mg tablet PO SCH (07:44)
[2017-12-31] MEDS: K and/or MAG REPLACEMENT MC SCH (08:00)
[2017-12-31] MEDS: BUDESONIDE 0.25 MG/2 ML AMPUL.NEB IH SCH ×2 (10:11→20:00)
[2017-12-31 12:00] VITALS: BP 135/66
[2017-12-31] MEDS: oxybutynin 5mg tablet PO PRN ×2 (13:20→21:40)
[2017-12-31] MEDS: magnesium hydroxide 30ml (MOM) UD suspension PO PRN (14:53)
[2017-12-31 19:30] VITALS: BP 119/77
[2018-01-01] VITALS: BP 136/88
[2018-01-01] MEDS: piperacillin/tazo 3.375gm/50ml 50 ML IV SCH ×4 (01:57→19:50)
[2018-01-01 05:01] LABS: BASOPHILS % (AUTO) 0.7 % (0-1); EOSINOPHILS # (AUTO) 0.5 X10'3 (0-0.9); EOSINOPHILS % (AUTO) 8.4 % (0-6); HEMATOCRIT 30.4 % (42.0-52.0); HEMOGLOBIN 10.4 g/dl (14.0-17.9); LYMPHOCYTES # (AUTO) 0.9 X10'3 (1.1-4.8); LYMPHOCYTES % (AUTO) 13.5 % (21-51); MEAN CORPUSCULAR HEMOGLOBIN 30.8 PG (27.0-31.0); MEAN CORPUSCULAR HGB CONC 34.1 % (33.0-36.5); MEAN CORPUSCULAR VOLUME 90.5 FL (78-98); MEAN PLATELET VOLUME 9.2 FL (7.4-10.4); MONOCYTES # (AUTO) 0.8 X10'3 (0-0.9); MONOCYTES % (AUTO) 13.1 % (2-12); NEUTROPHILS # (AUTO) 4.1 X10'3 (1.8-7.7); NEUTROPHILS % (AUTO) 64.3 % (42-75); PLATELET COUNT 139 X10'3 (140-440); RED BLOOD COUNT 3.36 X10'6 (4.70-6.10); RED CELL DISTRIBUTION WIDTH 14.9 % (11.5-14.5); WHITE BLOOD COUNT 6.4 X10'3 (4.5-11.0)
[2018-01-01 05:25] LABS: ALANINE AMINOTRANSFERASE 85 U/L (12-78); ALBUMIN 2.5 G/DL (3.4-5.0); ALBUMIN/GLOBULIN RATIO 0.7 (1.1-1.5); ALKALINE PHOSPHATASE 83 IU/L (46-116); ANION GAP 6 (8-16); ASPARTATE AMINO TRANSFERASE 30 U/L (10-37); BILIRUBIN,TOTAL 0.3 MG/DL (0.1-1.0); BLOOD UREA NITROGEN 9 MG/DL (7-18); BUN/CREATININE RATIO 6.7 (5.4-32.0); CALCIUM 8.4 MG/DL (8.5-10.1); CHLORIDE 106 MMOL/L (99-107); CREATININE 1.34 MG/DL (0.60-1.10); GLUCOSE 102 MG/DL (70-104); SODIUM 139 MMOL/L (135-145); TOTAL CARBON DIOXIDE 26.8 MMOL/L (24-32); TOTAL PROTEIN 6.1 G/DL (6.4-8.2); eGFR 55 ML/MIN
[2018-01-01] MEDS: lactobacillus rhamnosus 10,000 MMU CELLS/CAPSULE PO SCH ×2 (07:51→19:50)
[2018-01-01] MEDS: losartan 50mg tablet PO SCH (07:51)
[2018-01-01] MEDS: amLODIPine 5mg tablet PO SCH (07:51)
[2018-01-01] MEDS: pantoprazole 40mg Tablet.DR PO SCH (07:52)
[2018-01-01] MEDS: heparin, porcine 5000 units/ml vial SQ SCH ×2 (07:52→19:51)
[2018-01-01] MEDS: docusate sod 250mg capsule PO SCH ×2 (07:52→19:50)
[2018-01-01 08:00] VITALS: BP 162/91
[2018-01-01] MEDS: BUDESONIDE 0.25 MG/2 ML AMPUL.NEB IH SCH ×2 (08:00→20:00)
[2018-01-01] MEDS: K and/or MAG REPLACEMENT MC SCH (08:00)
[2018-01-01] MEDS: oxybutynin 5mg tablet PO PRN ×2 (11:58→19:50)
[2018-01-01 12:00] VITALS: BP 164/81
[2018-01-01] MEDS: magnesium hydroxide 30ml (MOM) UD suspension PO PRN (18:42)
[2018-01-01] MEDS: HYDROcodone/acetaminophen 10/325mg tab PO PRN (18:42)
[2018-01-01 20:00] VITALS: BP 156/92
[2018-01-02] VITALS: BP 146/82
[2018-01-02] MEDS: piperacillin/tazo 3.375gm/50ml 50 ML IV SCH ×4 (02:22→19:35)
[2018-01-02 05:21] LABS: BASOPHILS % (AUTO) 0.7 % (0-1); EOSINOPHILS # (AUTO) 0.8 X10'3 (0-0.9); EOSINOPHILS % (AUTO) 12.7 % (0-6); HEMATOCRIT 32.5 % (42.0-52.0); HEMOGLOBIN 10.9 g/dl (14.0-17.9); LYMPHOCYTES # (AUTO) 1.1 X10'3 (1.1-4.8); LYMPHOCYTES % (AUTO) 18.9 % (21-51); MEAN CORPUSCULAR HGB CONC 33.7 % (33.0-36.5); MEAN CORPUSCULAR VOLUME 91.9 FL (78-98); MEAN PLATELET VOLUME 8.7 FL (7.4-10.4); MONOCYTES # (AUTO) 0.8 X10'3 (0-0.9); MONOCYTES % (AUTO) 13.6 % (2-12); NEUTROPHILS # (AUTO) 3.2 X10'3 (1.8-7.7); NEUTROPHILS % (AUTO) 54.1 % (42-75); PLATELET COUNT 157 X10'3 (140-440); RED BLOOD COUNT 3.53 X10'6 (4.70-6.10); RED CELL DISTRIBUTION WIDTH 15.3 % (11.5-14.5); WHITE BLOOD COUNT 5.9 X10'3 (4.5-11.0)
[2018-01-02 05:41] LABS: ALANINE AMINOTRANSFERASE 72 U/L (12-78); ALBUMIN 2.5 G/DL (3.4-5.0); ALBUMIN/GLOBULIN RATIO 0.7 (1.1-1.5); ALKALINE PHOSPHATASE 76 IU/L (46-116); ANION GAP 5 (8-16); ASPARTATE AMINO TRANSFERASE 24 U/L (10-37); BILIRUBIN,TOTAL 0.3 MG/DL (0.1-1.0); BLOOD UREA NITROGEN 7 MG/DL (7-18); BUN/CREATININE RATIO 5.3 (5.4-32.0); CALCIUM 8.6 MG/DL (8.5-10.1); CHLORIDE 105 MMOL/L (99-107); CREATININE 1.32 MG/DL (0.60-1.10); GLUCOSE 97 MG/DL (70-104); POTASSIUM 3.8 MMOL/L (3.5-5.1); SODIUM 140 MMOL/L (135-145); TOTAL CARBON DIOXIDE 30.5 MMOL/L (24-32); TOTAL PROTEIN 6.3 G/DL (6.4-8.2); eGFR 56 ML/MIN
[2018-01-02] MEDS: HYDROcodone/acetaminophen 10/325mg tab PO PRN ×2 (07:58→19:35)
[2018-01-02] MEDS: oxybutynin 5mg tablet PO PRN ×2 (07:59→19:34)
[2018-01-02] MEDS: amLODIPine 5mg tablet PO SCH (07:59)
[2018-01-02] MEDS: lactobacillus rhamnosus 10,000 MMU CELLS/CAPSULE PO SCH ×2 (07:59→19:34)
[2018-01-02] MEDS: docusate sod 250mg capsule PO SCH ×2 (07:59→19:34)
[2018-01-02] MEDS: losartan 50mg tablet PO SCH (07:59)
[2018-01-02] MEDS: pantoprazole 40mg Tablet.DR PO SCH (07:59)
[2018-01-02] MEDS: K and/or MAG REPLACEMENT MC SCH (08:00)
[2018-01-02] MEDS: BUDESONIDE 0.25 MG/2 ML AMPUL.NEB IH SCH ×2 (08:00→19:29)
[2018-01-02] MEDS: heparin, porcine 5000 units/ml vial SQ SCH ×2 (08:01→19:40)
[2018-01-02 08:12] VITALS: BP 157/91
[2018-01-02 12:20] VITALS: BP 141/91
[2018-01-02 20:00] VITALS: BP 159/88
[2018-01-03] VITALS: BP 134/84
[2018-01-03] MEDS: piperacillin/tazo 3.375gm/50ml 50 ML IV SCH ×4 (01:46→19:43)
[2018-01-03] MEDS: HYDROcodone/acetaminophen 10/325mg tab PO PRN ×3 (01:50→19:43)
[2018-01-03 05:42] LABS: BASOPHILS % (AUTO) 0.8 % (0-1); EOSINOPHILS # (AUTO) 0.9 X10'3 (0-0.9); EOSINOPHILS % (AUTO) 15.3 % (0-6); HEMATOCRIT 32.5 % (42.0-52.0); HEMOGLOBIN 10.9 g/dl (14.0-17.9); LYMPHOCYTES # (AUTO) 1.2 X10'3 (1.1-4.8); LYMPHOCYTES % (AUTO) 20.7 % (21-51); MEAN CORPUSCULAR HEMOGLOBIN 30.8 PG (27.0-31.0); MEAN CORPUSCULAR HGB CONC 33.7 % (33.0-36.5); MEAN CORPUSCULAR VOLUME 91.5 FL (78-98); MEAN PLATELET VOLUME 8.7 FL (7.4-10.4); MONOCYTES # (AUTO) 0.7 X10'3 (0-0.9); MONOCYTES % (AUTO) 11.3 % (2-12); NEUTROPHILS % (AUTO) 51.9 % (42-75); PLATELET COUNT 180 X10'3 (140-440); RED BLOOD COUNT 3.55 X10'6 (4.70-6.10); RED CELL DISTRIBUTION WIDTH 15.6 % (11.5-14.5); WHITE BLOOD COUNT 5.8 X10'3 (4.5-11.0)
[2018-01-03] MEDS ORDERED: VANCOMYCIN LEVEL IV NR (06:30)
[2018-01-03 06:35] LABS: ALANINE AMINOTRANSFERASE 69 U/L (12-78); ALBUMIN 2.6 G/DL (3.4-5.0); ALBUMIN/GLOBULIN RATIO 0.7 (1.1-1.5); ALKALINE PHOSPHATASE 71 IU/L (46-116); ANION GAP 2 (8-16); ASPARTATE AMINO TRANSFERASE 30 U/L (10-37); BILIRUBIN,TOTAL 0.2 MG/DL (0.1-1.0); BLOOD UREA NITROGEN 12 MG/DL (7-18); BUN/CREATININE RATIO 7.3 (5.4-32.0); CALCIUM 8.9 MG/DL (8.5-10.1); CHLORIDE 106 MMOL/L (99-107); CREATININE 1.65 MG/DL (0.60-1.10); GLUCOSE 102 MG/DL (70-104); POTASSIUM 3.9 MMOL/L (3.5-5.1); SODIUM 140 MMOL/L (135-145); TOTAL CARBON DIOXIDE 32.3 MMOL/L (24-32); TOTAL PROTEIN 6.4 G/DL (6.4-8.2); eGFR 43 ML/MIN
[2018-01-03 07:00] VITALS: BP_SYST 120; BP_SYST 160; BP_DIAS 88; BP_DIAS 90
[2018-01-03] MEDS: BUDESONIDE 0.25 MG/2 ML AMPUL.NEB IH SCH ×2 (07:58→21:08)
[2018-01-03] MEDS: K and/or MAG REPLACEMENT MC SCH (08:00)
[2018-01-03] MEDS: heparin, porcine 5000 units/ml vial SQ SCH ×2 (08:35→19:44)
[2018-01-03] MEDS: pantoprazole 40mg Tablet.DR PO SCH (08:35)
[2018-01-03] MEDS: amLODIPine 5mg tablet PO SCH (08:35)
[2018-01-03] MEDS: lactobacillus rhamnosus 10,000 MMU CELLS/CAPSULE PO SCH ×2 (08:35→19:43)
[2018-01-03] MEDS: docusate sod 250mg capsule PO SCH ×2 (08:35→19:43)
[2018-01-03] MEDS: losartan 50mg tablet PO SCH (08:35)
[2018-01-03 11:33] VITALS: BP 143/87
[2018-01-03] MEDS: oxybutynin 5mg tablet PO PRN ×2 (13:44→21:24)
[2018-01-03] MEDS: ALBUTEROL PO ×2 (16:00→21:41)
[2018-01-03] MEDS: [UNRECOGNIZED DRUG - OTHER] PO ×2 (16:00→21:41)
[2018-01-03 20:00] VITALS: BP 156/70
[2018-01-04] VITALS: BP 136/88
[2018-01-04] MEDS: piperacillin/tazo 3.375gm/50ml 50 ML IV SCH ×4 (01:37→19:54)
[2018-01-04] MEDS: HYDROcodone/acetaminophen 10/325mg tab PO PRN ×2 (05:17→20:00)
[2018-01-04] MEDS: BUDESONIDE 0.25 MG/2 ML AMPUL.NEB IH SCH ×2 (07:16→20:50)
[2018-01-04] MEDS: ALBUTEROL PO ×2 (07:17→20:50)
[2018-01-04] MEDS: [UNRECOGNIZED DRUG - OTHER] PO ×2 (07:17→20:50)
[2018-01-04 07:30] VITALS: BP_SYST 152; BP_SYST 156; BP_DIAS 102; BP_DIAS 97
[2018-01-04] MEDS: K and/or MAG REPLACEMENT MC SCH (08:00)
[2018-01-04] MEDS: pantoprazole 40mg Tablet.DR PO SCH (08:27)
[2018-01-04] MEDS: docusate sod 250mg capsule PO SCH ×2 (08:27→19:53)
[2018-01-04] MEDS: amLODIPine 5mg tablet PO SCH (08:28)
[2018-01-04] MEDS: lactobacillus rhamnosus 10,000 MMU CELLS/CAPSULE PO SCH ×2 (08:28→19:53)
[2018-01-04] MEDS: losartan 50mg tablet PO SCH (08:28)
[2018-01-04] MEDS: heparin, porcine 5000 units/ml vial SQ SCH ×2 (09:46→19:53)
[2018-01-04] MEDS: oxybutynin 5mg tablet PO PRN ×2 (11:43→19:56)
[2018-01-04 12:22] VITALS: BP 157/110
[2018-01-04 19:20] VITALS: BP 145/80
[2018-01-04 23:20] VITALS: BP 146/72
[2018-01-05] MEDS: piperacillin/tazo 3.375gm/50ml 50 ML IV SCH ×4 (01:47→20:41)
[2018-01-05] MEDS: docusate sod 250mg capsule PO SCH ×2 (07:21→20:41)
[2018-01-05] MEDS: pantoprazole 40mg Tablet.DR PO SCH (07:21)
[2018-01-05] MEDS: amLODIPine 5mg tablet PO SCH (07:22)
[2018-01-05] MEDS: losartan 50mg tablet PO SCH (07:22)
[2018-01-05] MEDS: lactobacillus rhamnosus 10,000 MMU CELLS/CAPSULE PO SCH ×2 (07:22→20:41)
[2018-01-05] MEDS: K and/or MAG REPLACEMENT MC SCH (07:23)
[2018-01-05] MEDS: heparin, porcine 5000 units/ml vial SQ SCH ×2 (07:23→20:41)
[2018-01-05 07:37] VITALS: BP 154/91
[2018-01-05] MEDS: ALBUTEROL PO ×2 (08:22→20:04)
[2018-01-05] MEDS: [UNRECOGNIZED DRUG - OTHER] PO ×2 (08:22→20:04)
[2018-01-05] MEDS: BUDESONIDE 0.25 MG/2 ML AMPUL.NEB IH SCH ×2 (08:22→20:04)
[2018-01-05 11:33] VITALS: BP 140/74
[2018-01-05 19:05] VITALS: BP 145/79
[2018-01-05] MEDS: HYDROcodone/acetaminophen 10/325mg tab PO PRN (20:42)
[2018-01-05 23:15] VITALS: BP 148/80
[2018-01-06] MEDS: ketorolac tromethamine 0.5% ophthalmic drops EACHEYE PRN (01:29)
[2018-01-06] MEDS: piperacillin/tazo 3.375gm/50ml 50 ML IV SCH ×4 (02:44→19:46)
[2018-01-06 07:00] VITALS: BP 168/89
[2018-01-06] MEDS: losartan 50mg tablet PO SCH (07:55)
[2018-01-06] MEDS: docusate sod 250mg capsule PO SCH ×2 (07:55→19:45)
[2018-01-06] MEDS: heparin, porcine 5000 units/ml vial SQ SCH ×2 (07:55→19:45)
[2018-01-06] MEDS: amLODIPine 5mg tablet PO SCH (07:55)
[2018-01-06] MEDS: lactobacillus rhamnosus 10,000 MMU CELLS/CAPSULE PO SCH ×2 (07:55→19:45)
[2018-01-06] MEDS: HYDROcodone/acetaminophen 10/325mg tab PO PRN ×3 (07:56→20:14)
[2018-01-06] MEDS: pantoprazole 40mg Tablet.DR PO SCH (07:56)
[2018-01-06] MEDS: K and/or MAG REPLACEMENT MC SCH (08:00)
[2018-01-06] MEDS: BUDESONIDE 0.25 MG/2 ML AMPUL.NEB IH SCH ×2 (08:20→19:43)
[2018-01-06 11:00] VITALS: BP 110/79
[2018-01-06 19:30] VITALS: BP 159/78
[2018-01-06] MEDS: ALBUTEROL PO (19:43)
[2018-01-06] MEDS: [UNRECOGNIZED DRUG - OTHER] PO (19:43)
[2018-01-06] MEDS: oxybutynin 5mg tablet PO PRN (23:17)
[2018-01-07 00:05] VITALS: BP 172/85
[2018-01-07] MEDS: piperacillin/tazo 3.375gm/50ml 50 ML IV SCH ×3 (02:04→14:00)
[2018-01-07 02:15] VITALS: BP 127/75
[2018-01-07] MEDS: ketorolac tromethamine 0.5% ophthalmic drops EACHEYE PRN (04:23)
[2018-01-07] MEDS: BUDESONIDE 0.25 MG/2 ML AMPUL.NEB IH SCH (06:57)
[2018-01-07] MEDS: [UNRECOGNIZED DRUG - OTHER] PO (06:58)
[2018-01-07] MEDS: ALBUTEROL PO (06:58)
[2018-01-07 07:00] VITALS: BP 149/94
[2018-01-07] MEDS: K and/or MAG REPLACEMENT MC SCH (08:00)
[2018-01-07] MEDS: amLODIPine 5mg tablet PO SCH (08:48)
[2018-01-07] MEDS: lactobacillus rhamnosus 10,000 MMU CELLS/CAPSULE PO SCH (08:49)
[2018-01-07] MEDS: losartan 50mg tablet PO SCH (08:49)
[2018-01-07] MEDS: heparin, porcine 5000 units/ml vial SQ SCH (08:49)
[2018-01-07] MEDS: docusate sod 250mg capsule PO SCH (08:49)
[2018-01-07] MEDS: pantoprazole 40mg Tablet.DR PO SCH (08:49)
[2018-01-07 11:00] VITALS: BP 131/68
[2018-01-07] MEDS: HYDROcodone/acetaminophen 10/325mg tab PO PRN (14:44)
[2018-01-07] MEDS ORDERED: DOCU250C96 PO (15:33)
[2018-01-07] MEDS ORDERED: AMLO5TAB4 PO (15:33)
[2018-01-07] MEDS ORDERED: HYDR-3972 PO (15:33)
[2018-01-07] MEDS ORDERED: CIPR-230 PO (15:33)
[2018-01-07] MEDS ORDERED: OXYB5TAB11 PO (15:33)
== END 2018-01-07 19:10 | disposition home or self-care (01) | DRG 854 ==
LOC: ER 10:57 → ED HOLD 12:47 → EDBEDREQ 14:46 → SUR 3N 16:30 → PAS IN 12-29 14:33 → SUR 3N 12-29 18:15 → PCU 3S 12-29 21:10 → SUR 3N 12-30 15:10
PROVIDERS: ADMIT Internal Medicine; ATTEND Internal Medicine
PROC: 0T7D8ZZ Dilation of Urethra, Via Natural or Artificial Opening Endoscopic (ICD-10-PCS; 2017-12-29)
PROC: 0V908ZZ Drainage of Prostate, Via Natural or Artificial Opening Endoscopic (ICD-10-PCS; principal; 2017-12-29 16:16)
DX: A41.9 Sepsis, unspecified organism (principal); N39.0 Urinary tract infection, site not specified; N41.2 Abscess of prostate; N17.9 Acute kidney failure, unspecified; J44.9 Chronic obstructive pulmonary disease, unspecified; N18.3 Chronic kidney disease, stage 3 (moderate); I12.9 Hypertensive chronic kidney disease with stage 1 through stage 4 chronic kidney disease, or unspecified chronic kidney disease; K21.9 Gastro-esophageal reflux disease without esophagitis; B18.2 Chronic viral hepatitis C; F32.9 Major depressive disorder, single episode, unspecified; D64.9 Anemia, unspecified; N35.9 Urethral stricture, unspecified; K59.00 Constipation, unspecified; D69.6 Thrombocytopenia, unspecified; N43.3 Hydrocele, unspecified; N45.3 Epididymo-orchitis; Z79.899 Other long term (current) drug therapy; Z79.52 Long term (current) use of systemic steroids; Z90.49 Acquired absence of other specified parts of digestive tract; Z87.440 Personal history of urinary (tract) infections; Z87.891 Personal history of nicotine dependence
CPT/HCPCS: 36415; 72192; 76870; 80048; 80053; 80202; 81001; 83605; 83735; 84100; 84145; 84484; 85025; 85610; 85730; 87040; 87070; 87088; 90732; 93005; 94640; 94760; 99285; A4346; A4402; A4615; A6446; J0696; J1170; J1644; J2001; J2250; J2270; J2405; J2543; J2704; J3010; J3370; J3490; J7030; J7120; Q0163

== ENCOUNTER 2024-04-11 20:28 | Emergency (ER) | payer OTHER, MEDICAID ==
[~2024-04-11] VITALS: Ht 170.2 cm; Wt 84.0 kg
[~2024-04-11 20:28] MED LIST changes: +ALBU8HFA PO; +CARV3.12 PO; +CHOL10006 PO; +FURO-149 PO; -HYDR-3965 PO; +LISI2.5T14 PO; -MULT1CAP34 PO; -OMEP-84 PO; -PRED10TA PO; -ZES10T PO
[2024-04-11] MEDS: methylPREDNISolone sod succ 125mg/2ml vial IV ONE (21:12)
[2024-04-11] MEDS: ipratropium/albuterol 3ml nebule NEB ONE (21:20)
[2024-04-11 21:21] VITALS: PULSE 78; RESP 17; O2SAT 92
[2024-04-11 21:23] LABS: BASOPHILS # (AUTO) 0.1 X10'3 (0-0.2); BASOPHILS % (AUTO) 0.8 % (0-1); EOSINOPHILS # (AUTO) 0.4 X10'3 (0-0.9); EOSINOPHILS % (AUTO) 5.3 % (0-6); HEMATOCRIT 44.6 % (42.0-52.0); HEMOGLOBIN 14.9 g/dl (14.0-17.9); LYMPHOCYTES # (AUTO) 1.2 X10'3 (1.1-4.8); LYMPHOCYTES % (AUTO) 18.1 % (21-51); MEAN CORPUSCULAR HEMOGLOBIN 32.6 PG (27.0-31.0); MEAN CORPUSCULAR HGB CONC 33.3 g/dL (33.0-36.5); MEAN CORPUSCULAR VOLUME 97.7 FL (78-98); MEAN PLATELET VOLUME 8.3 FL (7.4-10.4); MONOCYTES # (AUTO) 0.8 X10'3 (0-0.9); MONOCYTES % (AUTO) 12.2 % (2-12); NEUTROPHILS # (AUTO) 4.3 X10'3 (1.8-7.7); NEUTROPHILS % (AUTO) 63.6 % (42-75); PLATELET COUNT 191 X10'3 (140-440); RED BLOOD COUNT 4.57 X10'6 (4.70-6.10); RED CELL DISTRIBUTION WIDTH 14.2 % (11.5-14.5); WHITE BLOOD COUNT 6.7 X10'3 (4.5-11.0)
[2024-04-11 21:33] VITALS: PULSE 75; RESP 23; O2SAT 91
[2024-04-11 21:37] LABS: ALANINE AMINOTRANSFERASE 24 U/L (12-78); ALBUMIN 3.3 G/DL (3.4-5.0); ALBUMIN/GLOBULIN RATIO 0.9 (1.1-1.5); ALKALINE PHOSPHATASE 65 IU/L (46-116); ANION GAP 4 (8-16); ASPARTATE AMINO TRANSFERASE 24 U/L (10-37); BILIRUBIN,TOTAL 0.3 MG/DL (0.1-1.0); BLOOD UREA NITROGEN 17 MG/DL (7-18); BUN/CREATININE RATIO 12.7 (10.0-20.0); CALCIUM 8.7 MG/DL (8.5-10.1); CHLORIDE 106 MMOL/L (99-107); CREATININE 1.34 MG/DL (0.60-1.10); GLUCOSE 181 MG/DL (70-104); POTASSIUM 3.8 MMOL/L (3.5-5.1); SODIUM 141 MMOL/L (135-145); TOTAL CARBON DIOXIDE 30.7 MMOL/L (24-32); TOTAL PROTEIN 6.8 G/DL (6.4-8.2); eCRCL 52 ML/MIN; eGFR 54 ML/MIN
[2024-04-11 21:45] LABS: PRO BRAIN NATRIURETIC PEPTIDE 273 PG/ML (0-125)
[2024-04-11] MEDS: VANCOMYCIN 1GM 200ML H20 (PEG) 200 ML IV SCH (22:30)
[2024-04-11] MEDS ORDERED: PRED50TA PO (22:32)
[2024-04-11] MEDS ORDERED: AZIT250T83 PO (22:32)
[2024-04-11] MEDS: CefTRIAXone 2gm/D5W 50ml BAG 50 ML IV ONE (23:26)
[2024-04-11] MEDS: azithromycin 250mg tablet PO ONE (23:26)
[2024-04-11 23:30] VITALS: BP 145/86; PULSE 75; RESP 14; TEMP 97.9; O2SAT 99
[2024-04-12] MEDS ORDERED: azithromycin/NS 500mg/250ml 250 ML IV SCH (08:00)
[2024-04-12] MEDS ORDERED: CefTRIAXone 2gm/D5W 50ml BAG 50 ML IV SCH (08:00)
== END 2024-04-11 23:35 | disposition home or self-care (01) ==
LOC: ER 20:28
DX: J44.1 Chronic obstructive pulmonary disease with (acute) exacerbation (principal); J98.11 Atelectasis; I50.9 Heart failure, unspecified; Z88.8 Allergy status to other drugs, medicaments and biological substances; Z91.09 Other allergy status, other than to drugs and biological substances; Z79.2 Long term (current) use of antibiotics; Z79.899 Other long term (current) drug therapy; Z87.440 Personal history of urinary (tract) infections
CPT/HCPCS: 36415; 71045; 80053; 83880; 84484; 85025; 93005; 94640; 96365; 96375; 96376; 99285; J0696; J2919; J3372; 94760